=== PATIENT | female | born 1950 | race Caucasian/White ===

== ENCOUNTER 2017-09-01 14:11 | Inpatient (IN) | payer OTHER, MEDICARE ==
[~2017-09-01] VITALS: Ht 160 cm; Wt 48.2 kg
[~2017-09-01 14:11] MED LIST: ASPIRIN EC81 M1 PO; ATORVASTATIN CA80 M1 PO; BENTYL10 M1 PO; BENTYL20 M1 PO; CALCIUM 500 +1 EAC5 PO; CLOBETASOL PROP15 G1 TOP; DICLOFENAC POTA50 M1 PO; DICLOFENAC SODI50 M3 PO; DIVALPROEX SOD500 M2 PO; FELBAMATE PO; FOLIC ACID1 M1 PO; IPRAT-ALBUT 0.5-3 ML INH; LASIX20 M1 PO; LIDODERM1 EACH TOP; METOPROLOL SUCC50 M2 PO; PHENOBARBITAL32.4 M1 PO; PROAIR HFA8.5 GM INH; RESTASIS1 EACH OPH; SYMBICORT 16010.2 GM INH; TRAMADOL HCL50 M1 PO; VITAMIN B-121000 MC3 PO
--- NOTE | 2017-09-01 15:09 | RADIOLOGY REPORT ---
EXAMINATION: XR PORTABLE CHEST CLINICAL INFORMATION: Shortness of breath. Cough. COMPARISON: Chest radiograph 07/08/2017. TECHNIQUE: Portable frontal view of the chest was obtained. FINDINGS: Cardiac leads overlie the chest. There is no focal consolidative disease , pleural effusion, or pneumothorax. The cardiac silhouette and upper mediastinal contours are normal. No acute osseous finding. Old healed fractures of a few right ribs are noted. IMPRESSION: Unremarkable examination. No consolidative disease or effusion.
[2017-09-01 15:44] LABS: ABSOLUTE BASOPHIL COUNT 0 /CUMM (0.0-0.2); ABSOLUTE EOSINOPHIL COUNT 0 /CUMM (0.0-0.7); ABSOLUTE GRANULOCYTE CT 2.2 /CUMM (1.4-6.5); ABSOLUTE MONOCYTE COUNT 0.4 /CUMM (0.10-0.60); BASOPHIL % 0.8 % (0.0-2.0); EOSINOPHIL % 0.4 % (0-5); GRANULOCYTE % 60.1 % (42.2-75.2); HEMATOCRIT 38.4 % (37-47); MEAN CORPUSCULAR HGB 33.1 PG (27.0-31.0); MEAN CORPUSCULAR HGB CONC 34.2 G/DL (33.0-37.0); MEAN CORPUSCULAR VOLUME 97.1 FL (81.0-99.0); MEAN PLATELET VOLUME 8.5 FL (7.4-10.4); PLATELET COUNT 124 /CUMM (130-400); RBC DISTRIBUTION WIDTH 13.7 % (11.5-14.5); RED BLOOD CELL CT 3.96 /CUMM (4.20-5.40); WHITE BLOOD CELL COUNT 3.7 /CUMM (4.8-10.8)
[2017-09-01] MEDS ORDERED: ECASA PO (16:07)
[2017-09-01] MEDS ORDERED: LIPO-FLAVONOID1 EACH PO (16:08)
--- NOTE | 2017-09-01 16:10 | ED DYSPNEA/ASTHMA COMPLAINT ---
History of Present Illness General Chief Complaint: Dyspnea (COPD, CHF, Other) Stated Complaint: SOB Source: patient, EMS Exam Limitations: poor historian Vital Signs & Intake/Output Vital Signs & Intake/Output Vital Signs Date Time Temp Pulse Resp B/P B/P Pulse O2 O2 Flow FiO2 Mean Ox Delivery Rate 09/01 2330 Nasal 2.0L Cannula 09/010 97.9 78 24 142/78 94 Nasal Cannula 09/01 2143 98.2 76 22 116/58 96 Nasal 3.0L Cannula 09/01 1956 Nasal 2.0L Cannula 09/01 1947 96.8 76 28 137/63 96 Nasal 3.0L Cannula 09/01 1710 98.4 76 20 114/53 94 Nasal 5.0L Cannula 09/01 1455 90 09/01 1430 92 Room Air Room Air 09/01 1416 96.3 79 20 153/88 94 Room Air Room Air ED Intake and Output 09/02 0000 09/01 1200 Intake Total 0 Output Total Balance 0 Intake, Oral 0 Patient 105 lb Weight Weight Bed scale Measurement Method Allergies Coded Allergies: cefuroxime (From Ceftin) (RASH 09/01/17) levofloxacin (From Levaquin) (RASH 09/01/17) morphine (UNKNOWN 09/01/17) Reconcile Medications Albuterol Sulfate (Proair Hfa) 8.5 GM HFA.AER.AD 2 PUF INH PRN WHEEZE ( Reported) Atorvastatin Calcium 80 MG TABLET 1 TAB PO DAILY CHOLESTEROL (Reported) Bioflav,Lemon/Vit Bcomp,C (Lipo-Flavonoid Plus Caplet) 200 MG-100 MG TABLET 1 TAB PO QAMPM SUPPLEMENT (Reported) Budesonide/Formoterol Fumarate (Symbicort 160-4.5 Mcg Inhaler) 10.2 GM HFA.AER.AD 2 PUF INH BID COPD Calcium Carbonate/Vitamin D3 (Calcium 500 + D Tablet) 1 EACH TABLET 1 TAB PO BID SUPPLEMENT (Reported) Clobetasol Propionate 15 GM OINT...G. 1 ART TOP DAILY PRN SKIN (Reported) apply to affected area(s) Cyanocobalamin (Vitamin B-12) 1,000 MCG TABLET 1 TAB PO QAM SUPPLEMENT ( Reported) Cyclosporine (Restasis) 1 EACH DROPERETTE 1 GTT OPH Q12H BOTH EYES (Reported) Diclofenac Sodium 50 MG TABLET.DR 1 TAB PO BID WATKINS (Reported) Dicyclomine Hydrochloride (Bentyl) 10 MG CAPSULE 20 MG PO TID PRN CRAMPS ( Reported) Divalproex Sodium 500 MG TABLET.DR 1 TAB PO BID EPILEPSY (Reported) [ECASA] 81 MG TAB 81 MG PO QAM HEART HEALTH (Reported) *ENTERIC CODED ASPIRIN Felbamate 600 MG TABLET 1 TAB PO BID EPILEPSY (Reported) Felbamate 600 MG TABLET 0.5 TAB PO DAILY EPILEPSY (Reported) Folic Acid 1 MG TABLET 1 TAB PO QAM SUPPLEMENT (Reported) Ipratropium/Albuterol Sulfate (Iprat-Albut 0.5-3(2.5) MG/3 Ml) 3 ML AMPUL.NEB 3 ML INH BID PRN SOB/WHEEZE (Reported) Metoprolol Succinate 50 MG TAB.ER.24H 1 TAB PO QAM HEART/BP (Reported) Phenobarbital 32.4 MG TABLET 1 TAB PO QAM EPILEPSY (Reported) Phenobarbital 32.4 MG TABLET 2 TAB PO QHS EPILEPSY (Reported) Triage Note: PT BIBA FROM HOME FOR EVAL OF URI SYMPTOMS. PT'S VISITING NURSE SUGGESTED PT COME TO THE ED FOR EVAL. PT REPORTS PRODUCTIVE COUGH, PT'S O2 SAT 92%-94% RA. PT RECEIVED 1 BREATHING TREATMENT EN ROUTE. PT ALSO COMPLAINS OF RUQ ABD PAIN THAT SHE DESCRIBES UNDER HER RIBS. ALSO HAD DIARRHEA, DENIES BLOOD IN STOOL. DENIES NAUSEA. Triage Nurses Notes Reviewed? yes Onset: Abrupt Duration: day(s):, constant, continues in ED Timing: recent history Severity: moderate, severe HPI: 59-year-old female comes into the emergency room feeling more increasingly weak. Patient reports that she's been feeling sick since this past Wednesday about 5-6 days ago. She's had some general weakness fatigue coughing shortness of breath with some mucus production. Subjective fevers and chills. Some associated diarrhea. Nothing seems to make the symptoms better. She lives by herself. Comes in for further evaluation. (Dominic Levi) Past History Travel History Traveled to [place] past 21 day No Medical History Any Pertinent Medical History? 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 No (Dominic Levi) Review of Systems Review of Systems Constitutional: Reports: see HPI. EENTM: Reports: see HPI. Respiratory: Reports: see HPI. Cardiovascular: Reports: no symptoms. GI: Reports: no symptoms. Genitourinary: Reports: no symptoms. Musculoskeletal: Reports: no symptoms. Skin: Reports: no symptoms. Neurological/Psychological: Reports: no symptoms. Hematologic/Endocrine: Reports: no symptoms. Immunologic/Allergic: Reports: no symptoms. All Other Systems: Reviewed and Negative (Dominic Levi) Physical Exam Physical Exam General Appearance: alert, awake, mild distress Head: atraumatic Eyes: Bilateral: normal appearance. Ears, Nose, Throat: normal ENT inspection, hearing grossly normal Neck: normal inspection Respiratory: decreased breath sounds, rhonchi, respiratory distress (mild) Cardiovascular: regular rate/rhythm Gastrointestinal: soft Extremities: normal inspection Neurologic/Psych: awake, alert, oriented x 3 Skin: intact, normal color Core Measures ACS in differential dx? Yes CVA/TIA Diagnosis No Sepsis Present: No Sepsis Focused Exam Completed? No (Dominic Levi) Progress Differential Diagnosis: asthma, altitude sickness, bronchitis, costochondritis, musculoskeletal pain, pericarditis, pulmonary embolism, pneumonia, pneumothorax, unstable angina, INFLUENZA Plan of Care: Orders Procedure Date/time Status Heart Healthy Diet 09/03 B Active CBC WITHOUT DIFFERENTIAL 09/03 599 Active Regular Diet 09/02 B Active VALPROIC ACID 09/02 599 Active BASIC ELECTROLYTES PLUS BUN&CR 09/02 599 Active TROPONIN LEVEL 09/02 13 Complete TRC EVALUATION (GEN) 09/02 8 Active Pathway - chart 09/02 8 Active House Staff 09/02 8 Active Patient Data 09/02 8 Active Code Status 02/01 0009 Active Lab Add-on Test 09/02 UNK Active VTE Mechanical Prophylaxis 09/02 UNK Active Vital Signs 09/02 UNK Complete MISTAKE 09/02 UNK Active EKG 09/02 UNK Active Regular Diet 09/01 D Complete Vital Signs 09/01 2314 Active Teach/Educate 09/014 Active Pain Treatment and Response 09/01 2313 Active Nutritional Intake, Monitor 09/01 2313 Active Isolation 09/01 2313 Active Intake & Output 09/01 2313 Active Patient Care Conference 09/01 2313 Active Activity/Ambulation 09/01 2313 Active Patient Data 09/01 203 Active ED Holding Orders 09/01 193 Active Admit to inpatient 09/01 1936 Active Vital Signs 09/01 193 Active Code Status 09/01 1936 Complete AEROSOL (GEN) 09/01 1450 Complete RAPID VIRAL INFLUENZA A 09/01 1449 Complete Add-on Test (ER Only) 09/01 1445 Active Telemetry/Back Feeder Plywood Layup Line 09/01 1445 Complete BLOOD CULTURE 09/01 1445 Active URINALYSIS 09/01 1445 Complete LACTIC ACID 09/01 1445 Complete Intake & Output 09/01 1429 Active TROPONIN LEVEL 09/01 1429 Complete COMPREHENSIVE METABOLIC PANEL 09/01 1429 Complete CBC WITHOUT DIFFERENTIAL 09/01 1429 Complete B-TYPE NATRIURETIC PEP (BNP) 09/01 1429 Complete EKG 09/01 1417 Active Current Medications Sig/Maureen Start time Last Medication Dose Stop Time Status Admin Phenobarbital 64.8 MG AT BEDTIME 09/02 2200 AC Atorvastatin Calcium 80 MG 1700 09/02 1700 AC (Lipitor) Felbamate 300 MG 1200 09/02 1200 AC Aspirin 81 MG DAILY 09/02 1000 AC (Aspirin) Azithromycin 500 MG DAILY 09/02 1000 AC (Zithromax) Dextrose/Water 250 ML (D5W) Budesonide/ 2 PUF BID 09/02 1000 AC Formoterol Fumarate (Symbicort) Enoxaparin Sodium 40 MG DAILY 09/02 1000 AC (Lovenox) Methylprednisolone 40 MG Q12 09/02 1000 AC (Solumedrol) Metoprolol Succinate 50 MG QAM 09/02 1000 AC (Toprol Xl) Nicotine 14 MG Q24 09/02 1000 AC (Nicotine Cq) Phenobarbital 32.4 MG QAM 09/02 1000 AC Albuterol Sulfate 2 PUF Q6 PRN 09/02 0200 AC (Ventolin) Divalproex Sodium 500 MG BID 09/02 199 AC 09/02 (Depakote) 0213 Felbamate 600 MG BID 09/02 199 AC 09/02 021 Acetaminophen 650 MG Q6P PRN 09/02 14 AC 09/02 (Tylenol) 0220 Ibuprofen 600 MG Q6P PRN 09/02 14 AC (Motrin) Sodium Chloride 1,000 ML ONCE ONE 09/02 14 AC 09/02 (Normal Saline 0.9%) 09/02 1334 0053 Laboratory Tests 09/02/17 0100: Troponin I < 0.01 09/01/17 1933: Urine Color YEL, Urine Clarity HAZY H, Urine pH 6.0, Ur Specific [place] 1.020, Urine Protein 30 H, Urine Ketones 15 H, Urine Nitrite NEG, Urine Bilirubin NEG , Urine Urobilinogen 0.2, Ur Leukocyte Esterase MOD H, Ur Microscopic SEDIMENT EXAMINED, Urine RBC RARE, Urine WBC 5-10 H, Ur Epithelial Cells RARE, Urine Bacteria FEW H, Urine Mucus RARE, Urine Hemoglobin NEG, Urine Glucose NEG 09/01/17 1745: Lactic Acid Cancelled 09/01/17 1527: Lactic Acid 1.1 09/01/17 1527: Anion Gap 14, Estimated GFR > 60, BUN/Creatinine Ratio 20.0, Glucose 64 L, Calcium 9.0, Total Bilirubin 0.2, AST 60 H, ALT 52, Alkaline Phosphatase 101, Troponin I 0.01, [id number] Pept 506 H, Total Protein 6.4, Albumin 3.6, Globulin 2.8, Albumin/Globulin Ratio 1.3, CBC w Diff MAN DIFF ORDERED, RBC 3.96 L, MCV 97.1, MCH 33.1 H, MCHC 34.2, RDW 13.7, MPV 8.5, Gran % 60.1, Lymphocytes % 27.2, Monocytes % 11.5 H, Eosinophils % 0.4, Basophils % 0.8, Absolute Granulocytes 2.2, Absolute Lymphocytes 1.0 L, Absolute Monocytes 0.4, Absolute Eosinophils 0, Absolute Basophils 0 Microbiology 09/01 1617 NASOPHARYN: Influenza Virus A & B Rapid Smear - COMP 09/01 1540 BLOOD: Blood Culture - RECD 09/01 1527 BLOOD: Blood Culture - RECD Diagnostic Imaging: Viewed by Me: Radiology Read. Discussed w/RAD: Radiology Read. Radiology Impression: PATIENT: ADELE JUAREZ PRESENT AGE: 67 PATIENT ACCOUNT NO: [id number] : 49 LOCATION: [facility] ORDERING PHYSICIAN: Dominic GUADARRAMA SERVICE DATE: 09/01/17-7481 EXAM TYPE : RAD - XRY-PORTABLE CHEST XRAY EXAMINATION: XR PORTABLE CHEST CLINICAL INFORMATION: Shortness of breath. Cough. COMPARISON: Chest radiograph 2016. TECHNIQUE: Portable frontal view of the chest was obtained. FINDINGS: Cardiac leads overlie the chest. There is no focal consolidative disease , pleural effusion, or pneumothorax. The cardiac silhouette and upper mediastinal contours are normal. No acute osseous finding. Old healed fractures of a few right ribs are noted. IMPRESSION: Unremarkable examination. No consolidative disease or effusion. DICTATED BY: Gilbert Finley MD DATE/TIME DICTATED:09/01 BAR PILOT:[place] DATE/TIME TRANSCRIBED:09/01/171504 CONFIDENTIAL, DO NOT COPY WITHOUT APPROPRIATE AUTHORIZATION. <Electronically signed in Other Vendor System> SIGNED BY: Gilbert Finley MD 09/01/171508 Initial ED EKG: normal sinus rhythm, rate (75) (Dominic Levi) Departure Departure Disposition: STILL A PATIENT Condition: Stable Clinical Impression Primary Impression: Hypoxia Secondary Impressions: COPD exacerbation, Flu-like symptoms Referrals: Juan M Dumont MD (PCP/Family) Departure Forms: Customer Survey General Discharge Information Admission Note Spoke With: Familia Fajardo MD Documentation of Exam: Documentation of any treatments & extenuating circumstances including Concerns Regarding Discharge (functional status, medication knowledge or non-compliance, living conditions, etc.) that warrant an admission rather than observation: Patient will require supplemental oxygen. IV steroids. Antibiotics. Supportive management. Pulmonary consult. Patient's oxygen saturation on room air when laying there is 82%. She will require regular breathing treatments. High risk. Lives by herself. Medically not safe for discharge. (Dominic Levi) PA/HORTICULTURAL FARM MANAGER Co-Sign Statement Statement: ED Attending supervision documentation- [X] I saw and evaluated the patient. I have also reviewed all the pertinent lab results and diagnostic results. I agree with the findings and the plan of care as documented in the PA's/HORTICULTURAL FARM MANAGER's documentation. [X] I have reviewed the ED Record and agree with the PA's/HORTICULTURAL FARM MANAGER's documentation. [] Additions or exceptions (if any) to the PAs/HORTICULTURAL FARM MANAGER's note and plan are summarized below: [] (Eula CONRAD,Gabrielle) Critical Care Note Critical Care Note Critical Care Time: non-applicable (Dominic Levi)
--- NOTE | 2017-09-01 20:21 | History & Physical ---
Manuel CONRAD,[facility] 09/01/172020: General Information and HPI MD Statement: I have seen and personally examined ADELE JUAREZ and documented this H&P. The patient is a 67 year old F who presented with a patient stated chief complaint of [flulike symptoms]. Source of Information: patient Exam Limitations: no limitations History of Present Illness: 67-year-old female with a past medical history of COPD, cardiomyopathy, viral encephalitis, seizures, right eye blindness, GI polyps, degenerative joint disease, hypodensities, depression, presenting for a chief complaint of flulike symptoms. The patient states that her symptoms started last Wednesday. That she had the flu. States she had fevers, shivering, and felt delirious. The patient states that the symptoms then slightly improved however on Wednesday afternoon she started having a headache, stated her ears felt filled up, and chills. The patient states that the fullness then slipped and to her chest. She states that she does have left chest pain which is stabbing quality, she thinks this is a muscle pain. The patient had visiting nurse visit Wednesday but was too weak to get the door. The patient also complains of diarrhea for 2 days without any blood. She also reports decreased appetite. She states she has shortness of breath currently and does not use any oxygen at home. She states she had productive cough during the weekend which was dark in color. The patient did not actually check the color of the sputum because she threw out the sample. She states that her flulike symptoms have gotten worse since Wednesday. Allergies/Medications Allergies: Coded Allergies: cefuroxime (From Ceftin) (RASH 09/01/17) levofloxacin (From Levaquin) (RASH 09/01/17) morphine (UNKNOWN 09/01/17) Home Med list Albuterol Sulfate (Proair Hfa) 8.5 GM HFA.AER.AD 2 PUF INH PRN WHEEZE ( Reported) Atorvastatin Calcium 80 MG TABLET 1 TAB PO DAILY CHOLESTEROL (Reported) Bioflav,Lemon/Vit Bcomp,C (Lipo-Flavonoid Plus Caplet) 200 MG-100 MG TABLET 1 TAB PO QAMPM SUPPLEMENT (Reported) Budesonide/Formoterol Fumarate (Symbicort 160-4.5 Mcg Inhaler) 10.2 GM HFA.AER.AD 2 PUF INH BID COPD Calcium Carbonate/Vitamin D3 (Calcium 500 + D Tablet) 1 EACH TABLET 1 TAB PO BID SUPPLEMENT (Reported) Clobetasol Propionate 15 GM OINT...G. 1 ART TOP DAILY PRN SKIN (Reported) apply to affected area(s) Cyanocobalamin (Vitamin B-12) 1,000 MCG TABLET 1 TAB PO QAM SUPPLEMENT ( Reported) Cyclosporine (Restasis) 1 EACH DROPERETTE 1 GTT OPH Q12H BOTH EYES (Reported) Diclofenac Sodium 50 MG TABLET.DR 1 TAB PO BID WATKINS (Reported) Dicyclomine Hydrochloride (Bentyl) 10 MG CAPSULE 20 MG PO TID PRN CRAMPS ( Reported) Divalproex Sodium 500 MG TABLET.DR 1 TAB PO BID EPILEPSY (Reported) [ECASA] 81 MG TAB 81 MG PO QAM HEART HEALTH (Reported) *ENTERIC CODED ASPIRIN Felbamate 600 MG TABLET 1 TAB PO BID EPILEPSY (Reported) Felbamate 600 MG TABLET 0.5 TAB PO DAILY EPILEPSY (Reported) Folic Acid 1 MG TABLET 1 TAB PO QAM SUPPLEMENT (Reported) Ipratropium/Albuterol Sulfate (Iprat-Albut 0.5-3(2.5) MG/3 Ml) 3 ML AMPUL.NEB 3 ML INH BID PRN SOB/WHEEZE (Reported) Metoprolol Succinate 50 MG TAB.ER.24H 1 TAB PO QAM HEART/BP (Reported) Phenobarbital 32.4 MG TABLET 1 TAB PO QAM EPILEPSY (Reported) Phenobarbital 32.4 MG TABLET 2 TAB PO QHS EPILEPSY (Reported) Past History Travel History Traveled to [place] past 21 day No Medical History Neurological: seizure EENT: RT EYE BLINDNESS Cardiovascular: cardiomyopathy, VITAL ENCEPHALITIS Respiratory: COPD Gastrointestinal: POLYPS Hepatic: NONE Renal: NONE Musculoskeletal: degen joint disease Psychiatric: bipolar disease, depression Endocrine: NONE Blood Disorders: NONE Cancer(s): NONE DATA SUPPORT SPECIALIST/Reproductive: NONE History of MRSA: No History of VRE: No History of CDIFF: No Surgical History Surgical History: non-contributory Past Family/Social History Family History Relations & Conditions if any Relation not specified for: *No pertinent family history Psychosocial History Services at Home: None ETOH Use: denies use Illicit Drug Use: denies illicit drug use Review of Systems Review of Systems Constitutional: Reports: see HPI, chills, fever, malaise, weakness. Cardiovascular: Reports: see HPI, chest pain. Denies: palpitations, peripheral edema. Respiratory: Reports: cough, short of breath, sputum production. GI: Reports: diarrhea. Genitourinary: Reports: no symptoms. Musculoskeletal: Reports: see HPI. Exam & Diagnostic Data Last 24 Hrs of Vital Signs/I&O Vital Signs Date Time Temp Pulse Resp B/P B/P Pulse O2 O2 Flow FiO2 Mean Ox Delivery Rate 09/01 2330 Nasal 2.0L Cannula 09/01 2320 97.9 78 24 142/78 94 Nasal Cannula 09/01 2143 98.2 76 22 116/58 96 Nasal 3.0L Cannula 09/01 1956 Nasal 2.0L Cannula 09/01 194 96.8 76 28 137/63 96 Nasal 3.0L Cannula 09/01 1710 98.4 76 20 114/53 94 Nasal 5.0L Cannula 09/01 1455 90 09/01 1430 92 Room Air Room Air 09/01 1416 96.3 79 20 153/88 94 Room Air Room Air Intake & Output 09/02 0800 09/02 0000 09/01 1600 Intake Total 0 Output Total Balance 0 Intake, Oral 0 Patient 105 lb 108 lb Weight Weight Bed scale Reported by Patient Measurement Method Physical Exam General Appearance Alert, Oriented X3, Cooperative Cardiovascular Regular Rate, Normal S1, Normal S2 Lungs decreased lung sounds, diffuse wheezing b/l Abdomen decreased BS Extremities no edema Vascular 2+ radial and pedal pulses Assessment/Plan Assessment: 67 year old F with pmhx of a COPD, 24-bsvu-dils current daily smoker, leichen sclerosis, cardiomyopathy, encephalitis, GI polyps, bipolar disease, depression, degenerative joint disease, right eye blindness, seizure presenting for increasing weakness P: #Acute hypoxic respiratory failure most likely due to COPD exascerbation Tmax 98.4, HR 76, R 20, BP range 114-153/53-88, 94% on 5 L WBC 3.7 Sodium 137, K4.0, chloride 94, CO2 29, anion gap 14, the urine 14, creatinine 0.7 Lactic acid 1.1 AST 60, ALT 52, ALP 101 trop .01, <.01 ProBNP 506 Rapid flu negative cxr: negative -Continue IV Solu-Medrol, TRC, nebs, azithromycin -Continue normal saline 1 L -Call Dr. Martinez as a courtesy #hld -cont Atorvastatin #seiszure meds -Continue felbamate, phenobarbital, divalproex Na #hx of cardiomyopathy -cont aspirin, #full code #dvt prophyalxis - Lovenox As Ranked By This Provider Problem List: 1. COPD exacerbation 2. Flu-like symptoms Core Measures/Misc (04/18) Acute Coronary Syndrome ACS Diagnosis: No Congestive Heart Failure Congestive Heart Failure Diagnosis No Cerebrovascular Accident CVA/TIA Diagnosis: No VTE (View Protocol) VTE Risk Factors Acute Medical Illness No Mechanical VTE Prophylaxis d/t Other No VTE Pharm Prophylaxis d/t NA PharmProphylax ordered Sepsis (View protocol) Sepsis Present: No Familia Fajardo 09/02/17 0447: Attending MD Review Statement Attending Statement Attending MD Statement: examined this patient, discuss w/resident/PA/DIE REAMER, agreed w/resident/PA/DIE REAMER, reviewed EMR data (avail), reviewed images, amended to note Attending Assessment/Plan: CC: URI symptoms PMH: cardiomyopathy, depression, bipolar disorder, 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 Since last 5 days she has not feeling very well, it started with upper respiratory symptoms "head cold" had nasal congestion and runny nose, notice to chills and felt febrile but did not take any temperature it continued through the next day, a following day she had a visiting nurse checking on her who suggested to continue supportive care later that evening she again noticed worsening fever, cold and headache. She was sick to the level that she was feeling delirious and could not do anything. Next day patient developed diarrhea, she had watery stools so many times that she lost count, it resolved with antidiarrheal medication. But cough and sputum production persisted, she was getting more short of breath. She called her visiting nurse with the symptoms also suggested her to go to ER. Vitals: Afebrile, pulse in 70s, RR 20, blood pressure 153/88, saturating 94% on 5 L On exam: A O 3, cooperative, no acute distress, neck supple, JVD normal, no lymphadenopathy, mucosa moist, no focal neurological deficit, no dependent edema , no obvious skin rashes or inflammation CVS: S1-S2, RRR. RS: Markedly decreased air entry and diffuse intermittent wheezing. Abdomen: Soft, NT, ND, bowel sounds present. Labs: WBC 3.7, hemoglobin 13.1, hematocrit 38.4, platelet 124, neutrophils 60%, sodium 137, potassium 4.0, chloride 94, bicarbonate 29, BUN 14, creatinine 0.7, glucose 64, calcium 9.0, lactate 1.1, LFT unremarkable except AST 60, troponin 0.01, BNP 506 Rapid influenza negative CXR:Unremarkable examination. No consolidative disease or effusion. Assessment and plan 67-year-old female with multiple comorbidities presented with a worsening of cough and sputum production it was preceded by URI symptoms especially around the nose, fever and chills. Patient has some chest soreness but denies any pleuritic chest pain, chest tightness, leg swelling, nausea, vomiting, choking, sick contacts, recent travels. She has decreased air entry bilaterally with diffuse intermittent wheezing otherwise examination unremarkable. WBC 3.7, no evidence of pneumonia on x-ray, proBNP normal. Patient appears to have COPD exacerbation precipitated by URI. High likelihood of having influenza but rapid flu test is negative. If patient spikes significant fever we will empirically start Tamiflu. Even though patient does not appear to be in significant respiratory distress she was desaturating even at rest in ER, oxygenation improved with nasal cannula. 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, COPD, S/P right CEA, history of GI bleed - Admit to general medicine - Try to wean off oxygen - IV methylprednisolone 40 mg every 12 hours - IV azithromycin - If fever spike considers Tamiflu - TRC nebulization with albuterol and ipratropium scheduled and when necessary - Mucinex scheduled twice a day - Continue rest of the home medications - Adequate pain control - Gentle hydration for 1 L normal saline - Informed Travis Martinez MD patient known to him - 2 sets of troponin and EKGs - DVT prophylaxis Stan CONRAD,[facility] 09/02/17 0604: Resident Review Statement Resident Statement: examined this patient, discussed with nutrition internship, agreed with nutrition internship, discussed with family Other Findings: Ms. Juarez is 67 year old female with past medical history significant for epilepsy status post viral encephalitis and temporarily ventricular drainage, depression, bipolar disorder, COPD, carotid stenosis status post right endarterectomy 2012, lower GI bleed who presented with chief complaint of flulike symptoms and shortness of breath, productive cough, stabbing chest pain under left intercostal muscles. Problem list #Upper respiratory infection #COPD exacerbation #Acute hypoxic respiratory failure #Epilepsy on 3 medication #Elevated AST Plan Admit to general medical floor Vitals every shift TRC and nebs Continue home inhalers Solu-Medrol 40 twice a day Azithromycin IV Follow up sputum, blood culture Mucinex for cough Troponin and EKG Continue home medication Courtesy call Travis Martinez MD If patient spikes fever start Tamiflu DVT prophylaxis Lovenox and Alps Code full Diet heart healthy
[2017-09-01 23:20] VITALS: BP 142/78
--- NOTE | 2017-09-02 04:49 | Admission Certification ---
Admission Certification Certification Statement - As attending physician, I certify that at the time of - admission, based on clinical presentation, severity of - symptoms, need for further diagnostic testing and - therapeutic interventions, and risk of adverse outcomes - without in-hospital treatment, in my clinical assessment, - this patient requires an acute hospital stay for a minimum - of two nights or longer. I have also considered psychsocial - factors such as support system, advanced age, financial - issues, cognitive issues, and failed out-patient treatments, - past re-admission history, safety of patient, and lack of - compliance as applicable. Specific rationale supporting this admission is: COPD exacerbation
[2017-09-02 06:47] VITALS: BP 136/70
--- NOTE | 2017-09-02 08:03 | PN- Housestaff ---
[facility] Subjective Follow-up For: Acute hypoxic respiratory failure due to COPD exacerbation. Subjective: No overnight events. Patient remained afebrile overnight. Is seen and examined this morning. Patient denied any chest pain, nausea, vomiting, chills, fever, abdominal pain dysuria. Patient reported having shortness of breath especially on exertion with cough, no sputum. Patient also reporting that her appetite has decreased. Review of Systems Constitutional: Reports: no symptoms. EENTM: Reports: no symptoms. Cardiovascular: Reports: no symptoms. Respiratory: Reports: cough, short of breath. Gastrointestinal: Reports: see HPI. Genitourinary: Reports: no symptoms. Musculoskeletal: Reports: no symptoms. Neurological/Psychological: Reports: no symptoms. Objective Last 24 Hrs of Vital Signs/I&O Vital Signs Date Time Temp Pulse Resp B/P B/P Pulse O2 O2 Flow FiO2 Mean Ox Delivery Rate 09/02 1009 95 Nasal 2.0L Cannula 09/02 0955 Nasal 2.0L Cannula 09/02 0931 84 138/70 09/02 0800 Nasal 2.0L Cannula 09/02 0647 97.9 86 24 136/70 93 Nasal 3.0L Cannula 09/02 0547 92 Nasal 2.0L Cannula 09/01 2330 Nasal 2.0L Cannula 09/01 2320 97.9 78 24 142/78 94 Nasal Cannula 09/01 2143 98.2 76 22 116/58 96 Nasal 3.0L Cannula 09/017 Nasal 2.0L Cannula 09/01 194 96.8 76 28 137/63 96 Nasal 3.0L Cannula 09/01 1710 98.4 76 20 114/53 94 Nasal 5.0L Cannula 09/01 1455 90 09/01 1430 92 Room Air Room Air 09/01 1416 96.3 79 20 153/88 94 Room Air Room Air Intake & Output 09/02 1600 09/02 0800 09/02 0000 Intake Total 1100 Output Total 400 Balance -400 1100 Intake, IV 600 Intake, Oral 500 Output, Urine 400 Patient 105 lb Weight Weight Bed scale Measurement Method Physical Exam General Appearance: Alert, Oriented X3, Cooperative Skin Temp/Moisture Exam: Warm/Dry Sepsis Skin Exam (color): Normal for Ethnicity HEENT: Atraumatic, PERRLA, EOMI Neck: Supple Cardiovascular: Normal S1, Normal S2 Lungs: Decreased breath sounds b/l with ronchi Abdomen: Soft, No Tenderness Neurological: Normal Speech, Strength at 5/5 X4 Ext, Normal Tone Extremities: No Edema Last 24 Hrs of Lab/Perfecto Results Last 24 Hrs of Labs/Mics: Laboratory Tests 09/02/17 0814: Ref Lab Test Result Pending 09/02/17 0520: Troponin I 0.02 09/02/17 0520: Anion Gap 12, Estimated GFR > 60, BUN/Creatinine Ratio 24.0, Valproic Acid 47.7 L 09/02/17 0100: Troponin I < 0.01 09/01/17 1933: Urine Color YEL, Urine Clarity HAZY H, Urine pH 6.0, Ur Specific [place] 1.020, Urine Protein 30 H, Urine Ketones 15 H, Urine Nitrite NEG, Urine Bilirubin NEG , Urine Urobilinogen 0.2, Ur Leukocyte Esterase MOD H, Ur Microscopic SEDIMENT EXAMINED, Urine RBC RARE, Urine WBC 5-10 H, Ur Epithelial Cells RARE, Urine Bacteria FEW H, Urine Mucus RARE, Urine Hemoglobin NEG, Urine Glucose NEG 09/01/17 1745: Lactic Acid Cancelled 09/01/17 1527: Lactic Acid 1.1 09/01/17 1527: Anion Gap 14, Estimated GFR > 60, BUN/Creatinine Ratio 20.0, Glucose 64 L, Calcium 9.0, Total Bilirubin 0.2, AST 60 H, ALT 52, Alkaline Phosphatase 101, Troponin I 0.01, Llv-W-Baprnclaqvn Pept 506 H, Total Protein 6.4, Albumin 3.6, Globulin 2.8, Albumin/Globulin Ratio 1.3, CBC w Diff MAN DIFF ORDERED, RBC 3.96 L, MCV 97.1, MCH 33.1 H, MCHC 34.2, RDW 13.7, MPV 8.5, Gran % 60.1, Lymphocytes % 27.2, Monocytes % 11.5 H, Eosinophils % 0.4, Basophils % 0.8, Absolute Granulocytes 2.2, Absolute Lymphocytes 1.0 L, Absolute Monocytes 0.4, Absolute Eosinophils 0, Absolute Basophils 0 Microbiology 09/02 608 LOWER RESP: Respiratory Culture - COLB 09/02 608 LOWER RESP: Gram Stain - COLB 09/01 1617 NASOPHARYN: Influenza Virus A & B Rapid Smear - COMP 09/01 1540 BLOOD: Blood Culture - RES 09/01 1527 BLOOD: Blood Culture - RES Assessment/Plan Assessment: 67 YO F with a PMH of COPD, cardiomyopathy, viral encephalitis, seizures, right eye blindness, GI polyps, degenerative joint disease, hypodensities, depression, presenting for a chief complaint of flulike symptoms. We'll admit the patient on general medicine floor to treat for acute hypoxic respiratory failure due to COPD exacerbation. Acute hypoxic respiratory failure due to COPD exacerbation: -Initially patient was on 5 L of oxygen and maintaining saturation, now he is on 3 L of oxygen and we will try to wean it off. -TRC nebulization as needed -IV azithromycin for 5 days. -IV Solu-Medrol every 12 hourly. -We will give him Mucinex. History of cardiomyopathy: -We will continue metoprolol and aspirin. History of hyperlipidemia: -We will continue Lipitor History of seizures: -We'll continue her home medications. DVT prophylaxis: Mechanical and Lovenox CODE STATUS: Full code Problem List: 1. COPD exacerbation 2. 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 Hypoxic in ER requiring 5L NC to maintain >92% saturation, with mild wheezing on exam. CXR and rapid flu negative. 1. COPD Exacerbation 2. Acute hypoxemic respiratory failure 3. Acute bronchitis Plan - Continue on general medicine - Continue Solumedrol, taper tomorrow if improved - Continue Azithromycin - Nebulizer treatments - Titrate down oxygen as tolerated - Continue home medications - Sputum culture - DVT PPx
[2017-09-02 14:07] VITALS: BP 122/74
[2017-09-02 14:41] VITALS: BP 110/70
--- NOTE | 2017-09-02 18:55 | Cons- Pulmonary ---
General Information and HPI Consulting Request Date of Consult: 09/02/17 Requested By: med team History of Present Illness: 67-year-old female with a past medical history of COPD, cardiomyopathy, viral encephalitis, seizures, right eye blindness, GI polyps, degenerative joint disease, hypodensities, depression, presenting for a chief complaint of flulike symptoms. The patient states that her symptoms started last Wednesday. That she had the flu. States she had fevers, shivering, and felt delirious. The patient states that the symptoms then slightly improved however on Wednesday she started having a headache, stated her ears felt filled up, and chills. The patient states that the fullness then slipped and to her chest. She states that she does have left chest pain which is stabbing quality, she thinks this is a muscle pain. The patient had visiting nurse visit Wednesday but was too weak to get the door. The patient also complains of diarrhea for 2 days without any blood. She also reports decreased appetite. She states she has shortness of breath currently and does not use any oxygen at home. She states she had productive cough during the weekend which was dark in color. The patient did not actually check the color of the sputum because she threw out the sample. She states that her flulike symptoms have gotten worse since Wednesday. Allergies/Medications Allergies: Coded Allergies: cefuroxime (From Ceftin) (RASH 09/01/17) levofloxacin (From Levaquin) (RASH 09/01/17) morphine (UNKNOWN 09/01/17) Home Med List: Albuterol Sulfate (Proair Hfa) 8.5 GM HFA.AER.AD 2 PUF INH PRN WHEEZE ( Reported) Atorvastatin Calcium 80 MG TABLET 1 TAB PO DAILY CHOLESTEROL (Reported) Bioflav,Lemon/Vit Bcomp,C (Lipo-Flavonoid Plus Caplet) 200 MG-100 MG TABLET 1 TAB PO QAMPM SUPPLEMENT (Reported) Budesonide/Formoterol Fumarate (Symbicort 160-4.5 Mcg Inhaler) 10.2 GM HFA.AER.AD 2 PUF INH BID COPD Calcium Carbonate/Vitamin D3 (Calcium 500 + D Tablet) 1 EACH TABLET 1 TAB PO BID SUPPLEMENT (Reported) Clobetasol Propionate 15 GM OINT...G. 1 ART TOP DAILY PRN SKIN (Reported) apply to affected area(s) Cyanocobalamin (Vitamin B-12) 1,000 MCG TABLET 1 TAB PO QAM SUPPLEMENT ( Reported) Cyclosporine (Restasis) 1 EACH DROPERETTE 1 GTT OPH Q12H BOTH EYES (Reported) Diclofenac Sodium 50 MG TABLET.DR 1 TAB PO BID WATKINS (Reported) Dicyclomine Hydrochloride (Bentyl) 10 MG CAPSULE 20 MG PO TID PRN CRAMPS ( Reported) Divalproex Sodium 500 MG TABLET.DR 1 TAB PO BID EPILEPSY (Reported) [ECASA] 81 MG TAB 81 MG PO QAM HEART HEALTH (Reported) *ENTERIC CODED ASPIRIN Felbamate 600 MG TABLET 1 TAB PO BID EPILEPSY (Reported) Felbamate 600 MG TABLET 0.5 TAB PO DAILY EPILEPSY (Reported) Folic Acid 1 MG TABLET 1 TAB PO QAM SUPPLEMENT (Reported) Ipratropium/Albuterol Sulfate (Iprat-Albut 0.5-3(2.5) MG/3 Ml) 3 ML AMPUL.NEB 3 ML INH BID PRN SOB/WHEEZE (Reported) Metoprolol Succinate 50 MG TAB.ER.24H 1 TAB PO QAM HEART/BP (Reported) Phenobarbital 32.4 MG TABLET 1 TAB PO QAM EPILEPSY (Reported) Phenobarbital 32.4 MG TABLET 2 TAB PO QHS EPILEPSY (Reported) Review of Systems Review of Systems Constitutional: Reports: see HPI. 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 Home Services at Home: Nursing Smoking Status: Current Everyday Smoker ETOH Use: denies use Illicit Drug Use: denies illicit drug use Exam & Diagnostic Data Last 24 Hrs of Vital Signs/I&O Vital Signs Date Time Temp Pulse Resp B/P B/P Pulse O2 O2 Flow FiO2 Mean Ox Delivery Rate 09/02 1441 97.6 60 18 110/70 97 09/02 1407 97.2 70 18 122/74 100 Nasal 2.0L Cannula 09/02 1009 95 Nasal 2.0L Cannula 09/02 0955 Nasal 2.0L Cannula 09/02 0931 84 138/70 09/02 0800 Nasal 2.0L Cannula 09/02 0647 97.9 86 24 136/70 93 Nasal 3.0L Cannula 09/02 0547 92 Nasal 2.0L Cannula 09/01 2330 Nasal 2.0L Cannula 09/01 2320 97.9 78 24 142/78 94 Nasal Cannula 09/01 2143 98.2 76 22 116/58 96 Nasal 3.0L Cannula 09/01 1956 Nasal 2.0L Cannula 09/01 1947 96.8 76 28 137/63 96 Nasal 3.0L Cannula Intake & Output 09/02 1600 09/02 0800 09/02 0000 Intake Total 1160 1100 Output Total 400 Balance 760 1100 Intake, IV 600 600 Intake, Oral 560 500 Output, Urine 400 Patient 105 lb Weight Weight Bed scale Measurement Method Last 48 Hrs of Labs/Perfecto: Laboratory Tests 09/02/17 0814: Ref Lab Test Result Pending 09/02/17 0520: Troponin I 0.02 09/02/17 0520: Anion Gap 12, Estimated GFR > 60, BUN/Creatinine Ratio 24.0, Valproic Acid 47.7 L 09/02/17 0100: Troponin I < 0.01 09/01/17 1933: Urine Color YEL, Urine Clarity HAZY H, Urine pH 6.0, Ur Specific [place] 1.020, Urine Protein 30 H, Urine Ketones 15 H, Urine Nitrite NEG, Urine Bilirubin NEG , Urine Urobilinogen 0.2, Ur Leukocyte Esterase MOD H, Ur Microscopic SEDIMENT EXAMINED, Urine RBC RARE, Urine WBC 5-10 H, Ur Epithelial Cells RARE, Urine Bacteria FEW H, Urine Mucus RARE, Urine Hemoglobin NEG, Urine Glucose NEG 09/01/17 1745: Lactic Acid Cancelled 09/01/17 1527: Lactic Acid 1.1 09/01/17 1527: Anion Gap 14, Estimated GFR > 60, BUN/Creatinine Ratio 20.0, Glucose 64 L, Calcium 9.0, Total Bilirubin 0.2, AST 60 H, ALT 52, Alkaline Phosphatase 101, Troponin I 0.01, Xqu-S-Nfozfjsgail Pept 506 H, Total Protein 6.4, Albumin 3.6, Globulin 2.8, Albumin/Globulin Ratio 1.3, CBC w Diff MAN DIFF ORDERED, RBC 3.96 L, MCV 97.1, MCH 33.1 H, MCHC 34.2, RDW 13.7, MPV 8.5, Gran % 60.1, Lymphocytes % 27.2, Monocytes % 11.5 H, Eosinophils % 0.4, Basophils % 0.8, Absolute Granulocytes 2.2, Absolute Lymphocytes 1.0 L, Absolute Monocytes 0.4, Absolute Eosinophils 0, Absolute Basophils 0 Microbiology 09/01 1617 NASOPHARYN: Influenza Virus A & B Rapid Smear - COMP Assessment/Plan Impression/Plan: SIGNIFICANT DATA Chest x-ray done was unremarkable no pneumonia Previous head CT was suggestive of chronic changes otherwise unremarkable Electrolytes as noted valproic acid level was low all the cultures have been negative so far BUN/creatinine is stable but glucose was low upon admission previous random cortisol level was normal proBNP was 506 white count was 3.7 platelets 124 with no significant left shift. Previous ABG did not reveal hypercarbia cultures so far unremarkable swab negative IMPRESSION This is a lady with bipolar disorder, depression, severe COPD with ongoing smoking, previous seizure disorder, carotid stenosis with previous surgery, remote history of viral encephalitis with CAT AND DOG BATHER shunt, previous colon polyps, diverticulosis, previous rectal bleeding and with Ongoing cough wheezing shortness of breath suggestive of COPD exacerbation. She also does have interstitial lung disease which is complicating the issue Recent diarrhea rule out C. difficile, if she has persistent diarrhea History of epilepsy, cardiomyopathy, peripheral vascular disease and epilepsy has been stable Ongoing smoking RECOMMENDATION Continue [id number]-kwthu nebulizer therapy Can switch to by mouth azithromycin Change steroids to 60 mg daily Continue nicotine patch Sputum culture Discontinue ibuprofen Discontinue IV fluids Stool for C. difficile and culture and full workup if she does have persistent diarrhea Consult Acknowledgment - Thank you for your consult request.
[2017-09-02 23:00] VITALS: BP 124/62
[2017-09-03 06:00] VITALS: BP 118/66
--- NOTE | 2017-09-03 08:45 | PN- Housestaff ---
[facility]: Subjective Follow-up For: Acute hypoxic respiratory failure due to COPD exacerbation. Subjective: No overnight events. Patient remained afebrile overnight. Seen and examined this morning. She is using 3 L of oxygen maintaining saturations 93%. Patient denied any chest pain, nausea, vomiting, chills, fever, abdominal pain dysuria. Patient reported having decreased appetite but has improved compared to yesterday. Patient having intermittent cough and exertional short of breath. We will check her ambulation sats today. Review of Systems Constitutional: Reports: no symptoms. EENTM: Reports: no symptoms. Cardiovascular: Reports: no symptoms. Respiratory: Reports: cough, short of breath. Gastrointestinal: Reports: see HPI. Genitourinary: Reports: no symptoms. Musculoskeletal: Reports: no symptoms. Neurological/Psychological: Reports: no symptoms. Objective Last 24 Hrs of Vital Signs/I&O Vital Signs Date Time Temp Pulse Resp B/P B/P Pulse O2 O2 Flow FiO2 Mean Ox Delivery Rate 09/03 1045 98.2 69 18 118/66 09/03 0822 92 Nasal 2.0L Cannula 09/03 0600 98.2 69 18 118/66 93 Nasal Cannula 09/03 0000 97 Nasal 2.0L Cannula 09/02 2300 97.6 70 18 124/62 95 Nasal Cannula 09/02 2004 94 Nasal 2.0L Cannula 09/02 1441 97.6 60 18 110/70 97 02/ 1407 97.2 70 18 122/74 100 Nasal 2.0L Cannula Intake & Output 09/03 1600 09/03 0800 09/03 0000 Intake Total 400 500 Output Total Balance 400 500 Intake, Oral 400 500 Physical Exam General Appearance: Alert, Oriented X3, Cooperative Skin Temp/Moisture Exam: Warm/Dry Sepsis Skin Exam (color): Normal for Ethnicity HEENT: Atraumatic, PERRLA, EOMI Neck: Supple Cardiovascular: Normal S1, Normal S2 Lungs: Decreased breath sounds on right side compare to left. Abdomen: Soft, No Tenderness Neurological: Normal Speech, Strength at 5/5 X4 Ext, Normal Tone, Sensation Intact Extremities: No Edema Assessment/Plan Assessment: 67 YO F with a PMH of COPD, cardiomyopathy, viral encephalitis, seizures, right eye blindness, GI polyps, degenerative joint disease, hypodensities, depression, presenting for a chief complaint of flulike symptoms. We'll admit the patient on general medicine floor to treat for acute hypoxic respiratory failure due to COPD exacerbation. Acute hypoxic respiratory failure due to COPD exacerbation: -Initially patient was on 5 L of oxygen and maintaining saturation, now he is on 3 L of oxygen and we will try to wean it off. -TRC nebulization as needed -Po azithromycin for 5 days. Day 2 -IV Solu-Medrol every 60mg daily. -We will give him Mucinex. History of cardiomyopathy: -We will continue metoprolol and aspirin. History of hyperlipidemia: -We will continue Lipitor History of seizures: -We'll continue her home medications. DVT prophylaxis: Mechanical and Lovenox CODE STATUS: Full code Problem List: 1. COPD exacerbation Pain Ratin Pain Location: none Pain Goal: Remain pain free Pain Plan: pain pathway Tomorrow's Labs & Rationales: cbc/bep Daija Garrison MD 09/03/17 1235: Attending MD Review Statement Attending Statement Attending MD Statement: examined this patient, discuss w/resident/PA/[employer], agreed w/resident/PA/[employer], reviewed EMR data (avail) Attending Assessment/Plan: 67F PMH cardiomyopathy, depression, bipolar disorder, history of viral encephalitis with temporary ventricular shunt and residual seizure disorder, COPD, S/P right CEA, history of GI bleed, current smoker admitted with initial URI symptoms followed by diarrhea, progressing to fever, chills, fatigue, productive cough with yellow sputum. Hypoxic in ER requiring 5L NC to maintain >92% saturation, with mild wheezing on exam. CXR and rapid flu negative. Feels a bit better today. Oxygen down to 2L NC. 1. COPD Exacerbation 2. Acute hypoxemic respiratory failure 3. Acute bronchitis Plan - Continue on general medicine - Continue Solumedrol 60mg daily, can switch to Prednisone tomorrow - Continue Azithromycin to complete 5 day course - Nebulizer treatments - Titrate down oxygen as tolerated - Continue home medications - Sputum culture - DVT PPx - Likely weekend discharge pending weaning off of oxygen.
[2017-09-03 09:08] LABS: ABSOLUTE BASOPHIL COUNT 0 /CUMM (0.0-0.2); ABSOLUTE EOSINOPHIL COUNT 0 /CUMM (0.0-0.7); ABSOLUTE GRANULOCYTE CT 1.4 /CUMM (1.4-6.5); ABSOLUTE LYMPH COUNT 1.3 /CUMM (1.2-3.4); ABSOLUTE MONOCYTE COUNT 0.2 /CUMM (0.10-0.60); BASOPHIL % 0.4 % (0.0-2.0); EOSINOPHIL % 0.4 % (0-5); GRANULOCYTE % 46.3 % (42.2-75.2); HEMATOCRIT 38.7 % (37-47); MEAN CORPUSCULAR HGB CONC 32.6 G/DL (33.0-37.0); MEAN PLATELET VOLUME 8.8 FL (7.4-10.4); PLATELET COUNT 137 /CUMM (130-400); RBC DISTRIBUTION WIDTH 13.4 % (11.5-14.5); RED BLOOD CELL CT 3.95 /CUMM (4.20-5.40); WHITE BLOOD CELL COUNT 2.9 /CUMM (4.8-10.8)
--- NOTE | 2017-09-03 10:14 | PN- Pulmonary ---
Subjective HPI/Critical Care Issues: Doing about the same and wheezing is better Objective Current Medications: Current Medications Sig/Maureen Start time Last Medication Dose Route Stop Time Status Admin Acetaminophen 650 MG Q6P PRN 09/02 0015 AC 09/02 PO 0927 Albuterol Sulfate 3 ML TID 09/02 1000 AC 09/03 INH 0822 Albuterol Sulfate 2 PUF Q6 PRN 09/02 0200 AC INH Aspirin 81 MG DAILY 09/02 1000 AC 09/02 PO 0928 Atorvastatin Calcium 80 MG 1700 02 1700 AC 09/02 PO 1640 Azithromycin 250 MG DAILY 09/03 1000 AC PO Azithromycin 500 MG DAILY 09/02 1000 DC 09/02 Dextrose/Water 250 ML IV 0948 Budesonide/ 2 PUF BID 09/02 1000 AC 09/02 Formoterol Fumarate INH 2140 Divalproex Sodium 500 MG BID 09/02 0200 AC 09/02 PO 2140 Enoxaparin Sodium 40 MG DAILY 09/02 1000 AC 09/02 SC 0925 Felbamate 300 MG 1200 09/02 1200 AC 09/02 PO 1301 Felbamate 600 MG BID 09/02 0200 AC 09/02 PO 2140 Guaifenesin 600 MG Q12 09/02 1000 AC 09/02 PO 2140 Ibuprofen 600 MG .STK-MED ONE 09/03 0036 DC PO 09/03 0037 Ibuprofen 600 MG Q6P PRN 09/02 0015 DC 09/03 PO 0037 Ipratropium [place] 2.5 ML TID 09/02 1000 AC 09/03 INH 0822 Methylprednisolone 60 MG DAILY 09/03 1000 AC IV Methylprednisolone 40 MG Q12 09/02 1000 DC 09/02 IV 2140 Metoprolol Succinate 50 MG QAM 09/02 1000 AC 09/02 PO 0931 Nicotine 14 MG Q24 09/02 1000 AC 09/02 TOP 0926 Phenobarbital 64.8 MG AT BEDTIME 09/02 2200 AC 09/02 PO 2249 Phenobarbital 32.4 MG QAM 09/02 1000 AC 09/02 PO 0931 Prednisone 60 MG DAILY 09/03 1000 CAN PO Sodium Chloride 1,000 ML ONCE ONE 09/02 0015 DC 09/02 IV 09/02 1334 0053 Vital Signs & I&O Last 24 Hrs of Vitals and I&O: Vital Signs Date Time Temp Pulse Resp B/P B/P Pulse O2 O2 Flow FiO2 Mean Ox Delivery Rate 09/03 821 92 Nasal 2.0L Cannula 09/03 06 98.2 69 18 118/66 93 Nasal Cannula 09/03 0000 97 Nasal 2.0L Cannula 09/02 2300 97.6 70 18 124/62 95 Nasal Cannula 09/02 2004 94 Nasal 2.0L Cannula 09/02 1441 97.6 60 18 110/70 97 09/02 1407 97.2 70 18 122/74 100 Nasal 2.0L Cannula Intake & Output 09/03 1600 09/03 0809/03 0000 Intake Total 400 500 Output Total Balance 400 500 Intake, Oral 400 500 Laboratory Tests 09/03 09/02 09/02 09/02 0818 0814 0520 0520 Chemistry Sodium (137 - 145 mmol/L) 135 L 136 L Potassium (3.5 - 5.1 mmol/L) 4.1 3.8 Chloride (98 - 107 mmol/L) 91 L 97 L Carbon Dioxide (22 - 30 mmol/L) 30 27 Anion Gap (5 - 16) 14 12 BUN (7 - 17 mg/dL) 8 12 Creatinine (0.5 - 1.0 mg/dL) 0.6 0.5 Estimated GFR (>60 ml/min) > 60 > 60 BUN/Creatinine Ratio (7 - 25 %) 13.3 24.0 Troponin I (< 0.11 ng/ml) 0.02 Hematology CBC w Diff NO MAN DIFF REQ WBC (4.8 - 10.8 /CUMM) 2.9 L RBC (4.20 - 5.40 /CUMM) 3.95 L Hgb (12.0 - 16.0 G/DL) 12.6 Hct (37 - 47 %) 38.7 MCV (81.0 - 99.0 FL) 98.0 MCH (27.0 - 31.0 PG) 32.0 H MCHC (33.0 - 37.0 G/DL) 32.6 L RDW (11.5 - 14.5 %) 13.4 Plt Count (130 - 400 /CUMM) 137 MPV (7.4 - 10.4 FL) 8.8 Gran % (42.2 - 75.2 %) 46.3 Lymphocytes % (20.5 - 51.1 %) 44.8 Monocytes % (1.7 - 9.3 %) 8.1 Eosinophils % (0 - 5 %) 0.4 Basophils % (0.0 - 2.0 %) 0.4 Absolute Granulocytes (1.4 - 6.5 /CUMM) 1.4 Absolute Lymphocytes (1.2 - 3.4 /CUMM) 1.3 Absolute Monocytes (0.10 - 0.60 /CUMM) 0.2 Absolute Eosinophils (0.0 - 0.7 /CUMM) 0 Absolute Basophils (0.0 - 0.2 /CUMM) 0 Miscellaneous Ref Lab Test Result (()) REPORT Toxicology Valproic Acid (50 - 120 ug/mL) 47.7 L 09/02 09/01 09/01 0100 1933 1745 Chemistry Lactic Acid Cancelled Troponin I (< 0.11 ng/ml) < 0.01 Urines Urine Color (YEL,AMB,STR) YEL Urine Clarity (CLEAR) HAZY H Urine pH (5.0 - 8.0) 6.0 Ur Specific [place] (1.001 - 1.035) 1.020 Urine Protein (NEG,<30 MG/DL) 30 H Urine Ketones (NEG) 15 H Urine Nitrite (NEG) NEG Urine Bilirubin (NEG) NEG Urine Urobilinogen (0.1 - 1.0 EU/dl) 0.2 Ur Leukocyte Esterase (NEG) MOD H Ur Microscopic SEDIMENT EXAMINED Urine RBC (0 - 5 /HPF) RARE Urine WBC (0 - 2 /HPF) 5-10 H Ur Epithelial Cells (NONE,FEW) RARE Urine Bacteria (NEG/NONE) FEW H Urine Mucus (FEW,NONE) RARE Urine Hemoglobin (NEG) NEG Urine Glucose (N MG/DL) NEG 09/01 09/01 1527 1527 Chemistry Sodium (137 - 145 mmol/L) 137 Potassium (3.5 - 5.1 mmol/L) 4.0 Chloride (98 - 107 mmol/L) 94 L Carbon Dioxide (22 - 30 mmol/L) 29 Anion Gap (5 - 16) 14 BUN (7 - 17 mg/dL) 14 Creatinine (0.5 - 1.0 mg/dL) 0.7 Estimated GFR (>60 ml/min) > 60 BUN/Creatinine Ratio (7 - 25 %) 20.0 Glucose (65 - 99 mg/dL) 64 L Lactic Acid (0.7 - 2.1 mmol/L) 1.1 Calcium (8.4 - 10.2 mg/dL) 9.0 Total Bilirubin (0.2 - 1.3 mg/dL) 0.2 AST (14 - 36 U/L) 60 H ALT (9 - 52 U/L) 52 Alkaline Phosphatase (<127 U/L) 101 Troponin I (< 0.11 ng/ml) 0.01 [id number] Pept (<125 pg/mL) 506 H Total Protein (6.3 - 8.2 g/dL) 6.4 Albumin (3.5 - 5.0 g/dL) 3.6 Globulin (1.9 - 4.2 gm/dL) 2.8 Albumin/Globulin Ratio (1.1 - 2.2 %) 1.3 Hematology CBC w Diff MAN DIFF ORDERED WBC (4.8 - 10.8 /CUMM) 3.7 L RBC (4.20 - 5.40 /CUMM) 3.96 L Hgb (12.0 - 16.0 G/DL) 13.1 Hct (37 - 47 %) 38.4 MCV (81.0 - 99.0 FL) 97.1 MCH (27.0 - 31.0 PG) 33.1 H MCHC (33.0 - 37.0 G/DL) 34.2 RDW (11.5 - 14.5 %) 13.7 Plt Count (130 - 400 /CUMM) 124 L MPV (7.4 - 10.4 FL) 8.5 Gran % (42.2 - 75.2 %) 60.1 Lymphocytes % (20.5 - 51.1 %) 27.2 Monocytes % (1.7 - 9.3 %) 11.5 H Eosinophils % (0 - 5 %) 0.4 Basophils % (0.0 - 2.0 %) 0.8 Absolute Granulocytes (1.4 - 6.5 /CUMM) 2.2 Absolute Lymphocytes (1.2 - 3.4 /CUMM) 1.0 L Absolute Monocytes (0.10 - 0.60 /CUMM) 0.4 Absolute Eosinophils (0.0 - 0.7 /CUMM) 0 Absolute Basophils (0.0 - 0.2 /CUMM) 0 Microbiology Date/Time Procedure - Status Source Growth 09/02 608 Respiratory Culture - COLB LOWER RESP 09/02 06 Gram Stain - COLB LOWER RESP 09/01 1617 Influenza Virus A & B Rapid Smear - COMP NASOPHARYN 09/01 1540 Blood Culture - RES BLOOD 09/01 1527 Blood Culture - RES BLOOD Impression/Plan Impression/Plan Impression/Plan: SIGNIFICANT DATA Chest x-ray done was unremarkable no pneumonia Previous head CT was suggestive of chronic changes otherwise unremarkable Electrolytes as noted valproic acid level was low all the cultures have been negative so far BUN/creatinine is stable but glucose was low upon admission previous random cortisol level was normal proBNP was 506 white count was 3.7 platelets 124 with no significant left shift. 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 She also does have interstitial lung disease which is complicating the issue * Recent diarrhea rule out C. difficile, if she has persistent diarrhea * History of epilepsy, cardiomyopathy, peripheral vascular disease and epilepsy has been stable * Ongoing smoking RECOMMENDATION Continue [id number]-[id number]-kmoqd nebulizer therapy azithromycin Change steroids to 60 mg daily Continue nicotine patch Sputum culture Discontinue ibuprofen Discontinue IV fluids Stool for C. difficile and culture and full workup if she does have persistent diarrhea Will follow prn over the weekend
--- NOTE | 2017-09-03 15:56 | Patient Discharge Instructions ---
Discharge Instructions General Discharge Information You were seen/treated for: Acute hypoxic respiratory failure due to COPD exacerbation Watch for these problems: Shortness of breath, cough, sputum, chest pain, lightheadedness and chest tightness. If you experience any of these symptoms place, to ED or call your primary care physician. Special Instructions: Follow up with your primary care physician in one week. Follow-up with your manager dental in 1 week. Diet Recommended Diet: Heart Healthy Activity Activity Self Limited: Yes Acute Coronary Syndrome Inclusion Criteria At DC or during hospital stay patient has or had the following: ACS DIAGNOSIS No Discharge Core Measures Meds if any: Prescribed or Continued at Discharge Meds if any: NOT Prescribed or Continued at Discharge Congestive Heart Failure Inclusion Criteria At DC or during hospital stay patient has or had the following: CHF DIAGNOSIS No Discharge Core Measures Meds if any: Prescribed or Continued at Discharge Meds if any: NOT Prescribed or Continued at Discharge Cerebrovascular accident Inclusion Criteria At DC or during hospital stay patient has or had the following: CVA/TIA Diagnosis No Discharge Core Measures Meds if any: Prescribed or Continued at Discharge Meds if any: NOT Prescribed or Continued at Discharge Venous thromboembolism Inclusion Criteria VTE Diagnosis No VTE Type NONE VTE Confirmed by (Test) NONE Discharge Core Measures - Per Current guidelines, there needs to be overlap - treatment for the first 5 days of Warfarin therapy. - If discharged on Warfarin prior to 5 days of - overlap therapy, the patient will need to be - assessed for post discharge needs including - *Post discharge parental anticoagulation - *Warfarin and/or parental anticoagulation education - *Follow up date to check INR post discharge At least 5 days overlap therapy as Inpatient No Meds if any: Prescribed or Continued at Discharge Note: Overlap Therapy is Warfarin and Anticoagulant Meds if any: NOT Prescribed or Continued at Discharge
[2017-09-03] MEDS ORDERED: PREDNISONE10 M2 PO (17:14)
[2017-09-03] MEDS ORDERED: AZITHROMYCIN250 M1 PO (17:16)
[2017-09-03 21:56] VITALS: BP 122/80
[2017-09-04 07:42] VITALS: BP 124/78
--- NOTE | 2017-09-04 10:05 | PN- Housestaff ---
[facility] 1004: Subjective Follow-up For: COPD exacerbation Subjective: The patient is sitting on chair looks relaxed uncomfortable. No acute overnight events were reported. Patient is currently on 3 L of oxygen saturating mid 90s. She still complaining of shortness breath especially with ambulation. The patient lives in the second floor, she stated that she will not be able to go home unless she can go up 1 flight of stairs. She denies any other current active complaints. Review of Systems Constitutional: Reports: no symptoms, see HPI. Objective Last 24 Hrs of Vital Signs/I&O Vital Signs Date Time Temp Pulse Resp B/P B/P Pulse O2 O2 Flow FiO2 Mean Ox Delivery Rate 09/04 1039 96 Nasal 3.0L Cannula 09/04 0859 97.9 71 20 124/78 09/04 0742 97.9 71 20 124/78 95 Nasal 2.0L Cannula 09/04 0607 Nasal 2.0L Cannula 09/04 0000 92 Nasal 3.0L Cannula 09/03 2156 97.5 74 20 122/80 92 09/03 1901 93 Nasal 2.0L Cannula 09/03 1600 92 Nasal 2.0L Cannula Intake & Output 09/04 1600 09/04 0800 09/04 0000 Intake Total 100 600 Output Total 250 Balance 100 350 Intake, IV 0 Intake, Oral 100 600 Number 0 1 Bowel Movements Output, Urine 250 Physical Exam General Appearance: Alert, Oriented X3, Cooperative, No Acute Distress HEENT: Atraumatic, PERRLA, EOMI, Mucous Membr. moist/pink Neck: No JVD Cardiovascular: Normal S1, Normal S2 Lungs: decreased air entry allover lungs bilaterally. Diffuse wheezing Abdomen: Soft, No Tenderness Neurological: Normal Speech Extremities: No Clubbing, No Cyanosis, No Edema Current Medications: Current Medications Sig/Maureen Start time Last Medication Dose Route Stop Time Status Admin Acetaminophen 650 MG Q6P PRN 09/02 0015 AC 09/04 PO 0630 Albuterol Sulfate 3 ML TID 09/02 1000 AC 09/04 INH 1035 Albuterol Sulfate 2 PUF Q6 PRN 09/02 0200 AC INH Aspirin 81 MG DAILY 09/02 1000 AC 09/04 PO 0859 Atorvastatin Calcium 80 MG 1700 09/02 1700 AC 09/03 PO 1643 Azithromycin 250 MG DAILY 09/03 1000 AC 09/04 PO 0858 Budesonide/ 2 PUF BID 09/02 1000 AC 09/04 Formoterol Fumarate INH 0900 Divalproex Sodium 500 MG BID 09/02 0200 AC 09/04 PO 0859 Enoxaparin Sodium 40 MG DAILY 09/02 1000 AC 09/04 SC 0859 Felbamate 300 MG 1200 09/02 1200 AC 09/03 PO 1313 Felbamate 600 MG BID 09/02 0200 AC 09/04 PO 0901 Guaifenesin 600 MG Q12 09/02 1000 AC 09/04 PO 0858 Ipratropium Hiko 2.5 ML TID 09/02 1000 AC 09/04 INH 1035 Methylprednisolone 60 MG DAILY 09/03 1000 AC 09/04 IV 0900 Metoprolol Succinate 50 MG QAM 09/02 1000 AC 09/04 PO 0859 Nicotine 14 MG Q24 09/02 1000 AC 09/04 TOP 0858 Phenobarbital 64.8 MG AT BEDTIME 09/02 2200 AC 09/03 PO 2111 Phenobarbital 32.4 MG QAM 09/02 1000 AC 09/04 PO 0911 Potassium Chloride 40 MEQ ONCE ONE 09/04 1145 AC PO 09/04 1146 Sodium Chloride 2 SPRAY Q4P PRN 09/04 0730 AC 09/04 MORGAN 0912 Last 24 Hrs of Lab/Perfecto Results Last 24 Hrs of Labs/Mics: Laboratory Tests 09/04/17 0755: Anion Gap 12, Estimated GFR > 60, BUN/Creatinine Ratio 12.0 Assessment/Plan Assessment: 67 YO F with a PMH of COPD, cardiomyopathy, viral encephalitis, seizures, right eye blindness, GI polyps, degenerative joint disease, hypodensities, depression, presenting for a chief complaint of flulike symptoms. #COPD exacerbation: * Oxygen requirement increased from 2 L yesterday to 3 L today * We will continue steroids and taper as allowed by the patient's status * We will continue azithromycin today's date 3 * We will continue Mucinex. #Cardiomyopathy, hyperlipidemia, seizures: * Continue metoprolol and aspirin. * Continue Lipitor * Continue her home medications. -DVT prophylaxis with mechanical and Lovenox -Full code Problem List: 1. COPD exacerbation Pain Ratin Pain Location: na Pain Goal: Remain pain free Pain Plan: See assessment and plan Tomorrow's Labs & Rationales: See assessment and plan Genevieve CONRAD,B 09/04/17 1149: Attending MD Review Statement Attending Statement Attending Statement: examined this patient, discuss w/resident/PA/FEATHER CUTTING MACHINE FEEDER, agreed w/resident/PA/FEATHER CUTTING MACHINE FEEDER, discussed with nursing Attending Assessment/Plan: Pt discussed with the covering house staff, seen and examined independently. 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 Her O2 requrement increased to 3 Lts dform 2 lts. reports diarrrhea is improved. On exam Lung sounds are significantly diminished bilaterllay. A/P: COPD exacerbation c/b Hypoxia; pt will benefit from continuing on IV steroids. will consider taper to po prednsione in am if improved lung exam and O2 requirement. c/w azithromycin. follow pulm recs. Wean O2 as tolerated, Ambulatory sats prior to discharge. plan discussed with nursing staff and patient. Attending Statement Attending Statement: examined this patient, discuss w/resident/PA/FEATHER CUTTING MACHINE FEEDER, agreed w/resident/PA/FEATHER CUTTING MACHINE FEEDER, discussed with nursing Attending Assessment/Plan: Pt discussed with the covering house staff, seen and examined independently. 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 Her O2 requrement increased to 3 Lts dform 2 lts. reports diarrrhea is improved. On exam Lung sounds are significantly diminished bilaterllay. A/P: COPD exacerbation c/b Hypoxia; pt will benefit from continuing on IV steroids. will consider taper to po prednsione in am if improved lung exam and O2 requirement. c/w azithromycin. follow pulm recs. Wean O2 as tolerated, Ambulatory sats prior to discharge. plan discussed with nursing staff and patient.
--- NOTE | 2017-09-04 10:19 | Discharge Summary ---
Hospital Course Allergies: Coded Allergies: cefuroxime (From Ceftin) (RASH 09/01/17) levofloxacin (From Levaquin) (RASH 09/01/17) morphine (UNKNOWN 09/01/17) Discharge Instructions Medications at Discharge Discharge Medications: Stop taking the following medications: Felbamate (Felbamate) 600 MG TABLET ORAL DAILY Qty = 90 Diclofenac Sodium (Diclofenac Sodium) 50 MG TABLET.DR ORAL TWICE DAILY Continue taking these medications: Metoprolol Succinate (Metoprolol Succinate) 50 MG TAB.ER.24H 1 Tablet ORAL Every Morning Qty = 90 Comments: DID NOT RECEIVE WHILE IN HOSPITAL Felbamate (Felbamate) 600 MG TABLET 1 Tablet ORAL TWICE DAILY Qty = 90 Comments: Last Taken: 12/17/15 Time: 10:30 AM Phenobarbital (Phenobarbital) 32.4 MG TABLET 1 Tablet ORAL Every Morning Comments: Last Taken: 12/17/15 Time: 10:30 AM Phenobarbital (Phenobarbital) 32.4 MG TABLET 2 Tablet ORAL TAKE AT BEDTIME Qty = 90 Comments: Last Taken: 12/16/15 Time: 11:00 PM Divalproex Sodium (Divalproex Sodium) 500 MG TABLET.DR 1 Tablet ORAL TWICE DAILY Qty = 60 Comments: Last Taken: 12/17/15 Time: 10:30 AM Folic Acid (Folic Acid) 1 MG TABLET 1 Tablet ORAL Every Morning Qty = 90 Comments: Last Taken: 12/17/15 Time: 10:30 AM Atorvastatin Calcium (Atorvastatin Calcium) 80 MG TABLET 1 Tablet ORAL DAILY Qty = 90 Comments: Last Taken: 12/16/15 Time: 5:00 PM Calcium Carbonate/Vitamin D3 (Calcium 500 + D Tablet) 1 EACH TABLET 1 Tablet ORAL TWICE DAILY Comments: DID NOT RECEIVE WHILE IN HOSPITAL Cyanocobalamin (Vitamin B-12) 1,000 MCG TABLET 1 Tablet ORAL Every Morning Comments: Last Taken: 12/17/15 Time: 10:30 AM Clobetasol Propionate (Clobetasol Propionate) 15 GM OINT...G. 1 Application On the skin DAILY as needed for SKIN Qty = 60 Instructions: apply to affected area(s) Comments: DID NOT RECEIVE WHILE IN HOSPITAL Ipratropium/Albuterol Sulfate (Iprat-Albut 0.5-3(2.5) MG/3 Ml) 3 ML AMPUL.NEB 3 Milliliters Inhale through mouth TWICE DAILY as needed for SOB/WHEEZE Comments: Last Taken: 12/17/15 Time: 11:45 AM Albuterol Sulfate (Proair Hfa) 8.5 GM HFA.AER.AD 2 Puff Inhale through mouth as needed for WHEEZE Comments: DID NOT RECEIVE WHILE IN HOSPITAL Cyclosporine (Restasis) 1 EACH DROPERETTE 1 Drop In the eye Q12H Comments: DID NOT RECEIVE WHILE IN HOSPITAL Budesonide/Formoterol Fumarate (Symbicort 160-4.5 Mcg Inhaler) 10.2 GM HFA.AER.AD 2 Puff Inhale through mouth TWICE DAILY Qty = 1 Comments: Last Taken: 12/17/15 Time: 2:30 PM Dicyclomine Hydrochloride (Bentyl) 10 MG CAPSULE 20 Milligram ORAL THREE TIMES DAILY as needed for CRAMPS [ECASA] 81 MG TAB 81 Milligram ORAL Every Morning Instructions: *ENTERIC CODED ASPIRIN Bioflav,Lemon/Vit Bcomp,C (Lipo-Flavonoid Plus Caplet) 200 MG-100 MG TABLET 1 Tablet ORAL Every Morning-Night Start taking the following new medications: Prednisone (Prednisone) 10 MG TABLET 0 ORAL DAILY Qty = 63 No Refills Instructions: On Take 09/04-09/06 60 MG 09/07-09/09 50 MG 09/10-09/12 40 MG 09/13-09/15 30 MG 09/16-09/18 20 MG 09/19-09/21 10 MG then stop Qty = 3 No Refills
[2017-09-04 14:24] VITALS: BP 122/82
[2017-09-04 22:33] VITALS: BP 104/52
[2017-09-05 07:05] VITALS: BP 120/64
--- NOTE | 2017-09-05 07:33 | PN- Housestaff ---
[facility] Subjective Follow-up For: Acute hypoxic respiratory failure due to COPD exacerbation Subjective: No overnight events. Patient remained afebrile overnight. Seen and examined this morning. She is using 3 L of oxygen maintaining saturations 96%. patient desats to 80s this morning. Patient denied any chest pain, nausea, vomiting, chills, fever, abdominal pain dysuria. She reported shortness of breath and cough with sputum. Review of Systems Constitutional: Reports: no symptoms. EENTM: Reports: no symptoms. Cardiovascular: Reports: no symptoms. Respiratory: Reports: cough, short of breath, sputum production. Gastrointestinal: Reports: no symptoms. Genitourinary: Reports: no symptoms. Musculoskeletal: Reports: no symptoms. Neurological/Psychological: Reports: no symptoms. Objective Last 24 Hrs of Vital Signs/I&O Vital Signs Date Time Temp Pulse Resp B/P B/P Pulse O2 O2 Flow FiO2 Mean Ox Delivery Rate 09/05 0812 96 Nasal 2.0L Cannula 09/05 0705 98.1 71 20 120/64 93 Nasal 3.0L Cannula 09/04 2233 98.1 72 20 104/52 94 Nasal Cannula 09/04 1939 94 Nasal 2.0L Cannula 09/04 1600 Nasal 2.0L Cannula 09/04 1424 98.1 81 18 122/82 91 Room Air 09/04 1039 96 Nasal 3.0L Cannula 09/04 0859 97.9 71 20 124/78 Intake & Output 09/05 1600 09/05 0800 02 0000 Intake Total 0 160 Output Total 2 Balance -2 160 Intake, IV 0 20 Intake, Oral 0 140 Number 2 Bowel Movements Output, Urine 2 Physical Exam General Appearance: Alert, Oriented X3, Cooperative Skin Temp/Moisture Exam: Warm/Dry Sepsis Skin Exam (color): Normal for Ethnicity HEENT: Atraumatic, PERRLA, EOMI Neck: Supple Cardiovascular: Normal S1, Normal S2 Lungs: Bronchospasm b/l. Decreased breath sounds b/l Abdomen: Soft, No Tenderness Neurological: Normal Speech, Strength at 5/5 X4 Ext, Normal Tone, Sensation Intact Extremities: No Edema Assessment/Plan Assessment: 67 YO F with a PMH of COPD, cardiomyopathy, viral encephalitis, seizures, right eye blindness, GI polyps, degenerative joint disease, hypodensities, depression, presenting for a chief complaint of flulike symptoms. We'll admit the patient on general medicine floor to treat for acute hypoxic respiratory failure due to COPD exacerbation. Acute hypoxic respiratory failure due to COPD exacerbation: -Initially patient was on 5 L of oxygen and maintaining saturation, now he is on 3 L of oxygen and we will try to wean it off. -TRC nebulization as needed -Po azithromycin for 5 days. Day 4 -IV Solu-Medrol every 60mg daily. -We will give him Mucinex. History of cardiomyopathy: -We will continue metoprolol and aspirin. History of hyperlipidemia: -We will continue Lipitor History of seizures: -We'll continue her home medications. DVT prophylaxis: Mechanical and Lovenox CODE STATUS: Full code Problem List: 1. COPD exacerbation Pain Ratin Pain Location: none Pain Goal: Remain pain free Pain Plan: pain pathway Tomorrow's Labs & Rationales: vinnie Vallejo MD,B 09/05/17 1029: Attending MD Review Statement Attending Statement Attending MD Statement: examined this patient, discuss w/resident/PA/OPEN HEARTH FURNACE OPERATOR, agreed w/resident/PA/OPEN HEARTH FURNACE OPERATOR, discussed with nursing Attending Assessment/Plan: 67 y/o female with hypoxic resp failure, COPD exacerbation on IV steoids and supplemental O2. This morning pt had an episode of worsening SOB which improved after treatment. yesterday pt desatted to 87% with ambulatlory sats. On exam Lung sounds are still significantly diminished bilaterllay and pt is not moving air at all. A/P: COPD exacerbation c/b Hypoxia; increase solumedrol dose to q12h. c/w azithromycin. follow pulm recs. Wean O2 as tolerated, Ambulatory sats prior to discharge. follow up with pulm upon discharge. Hypokalemia - improved
[2017-09-05 14:30] VITALS: BP 120/72
[2017-09-05 22:32] VITALS: BP 126/70
[2017-09-06 07:10] VITALS: BP 132/68
--- NOTE | 2017-09-06 07:28 | PN- Housestaff ---
[facility] 0727: Subjective Follow-up For: Acute hypoxic respiratory failure due to COPD exacerbation Subjective: No overnight events. Patient remained afebrile overnight. Seen and examined this morning. She denied any chest pain, nausea, vomiting, chills, fever, abdominal pain dysuria. Patient reported having intermittent cough without any phlegm and shortness of breath on exertion. Patient is using 3 L O2 and maintaining saturation 92%. Patient desaturated yesterday and was complaining of shortness of breath that's why she was not discharged. Her IV steroids were increased yesterday. Patient's gait is still unsteady might be she needs PT evaluated again. Review of Systems Constitutional: Reports: no symptoms. EENTM: Reports: no symptoms. Cardiovascular: Reports: no symptoms. Respiratory: Reports: cough, short of breath. Gastrointestinal: Reports: no symptoms. Genitourinary: Reports: no symptoms. Musculoskeletal: Reports: no symptoms. Neurological/Psychological: Reports: no symptoms. Objective Last 24 Hrs of Vital Signs/I&O Vital Signs Date Time Temp Pulse Resp B/P B/P Pulse O2 O2 Flow FiO2 Mean Ox Delivery Rate 09/06 0900 93 Nasal 2.0L Cannula 09/06 0811 97.7 76 20 132/68 09/06 0710 97.7 76 20 132/68 92 02/ 0000 94 Nasal 2.0L Cannula 09/05 2232 97.8 70 20 126/70 94 Nasal 2.0L Cannula 09/05 2100 95 Nasal 2.0L Cannula 09/05 1600 94 Nasal 2.0L Cannula 09/05 1430 98.2 62 20 120/72 96 Intake & Output 09/06 1600 09/06 0800 02 0000 Intake Total 260 260 Output Total Balance 260 260 Intake, IV 20 20 Intake, Oral 240 240 Physical Exam General Appearance: Alert, Oriented X3, Cooperative Skin Temp/Moisture Exam: Warm/Dry Sepsis Skin Exam (color): Normal for Ethnicity HEENT: Atraumatic, PERRLA, EOMI Neck: Supple Cardiovascular: Normal S1, Normal S2 Lungs: B/L decreased breath sounds Abdomen: Soft, No Tenderness Neurological: Normal Speech, Normal Tone Extremities: No Edema Assessment/Plan Assessment: 67 YO F with a PMH of COPD, cardiomyopathy, viral encephalitis, seizures, right eye blindness, GI polyps, degenerative joint disease, hypodensities, depression, presenting for a chief complaint of flulike symptoms. We'll admit the patient on general medicine floor to treat for acute hypoxic respiratory failure due to COPD exacerbation. Acute hypoxic respiratory failure due to COPD exacerbation: -Initially patient was on 5 L of oxygen and maintaining saturation, now he is on 3 L of oxygen and we will try to wean it off. -TRC nebulization as needed -Po azithromycin for 5 days. Day 5 -Prednisone 50mg daily and with tapering dose. -We will give him Mucinex. -Incentive spirometry History of cardiomyopathy: -We will continue metoprolol and aspirin. History of hyperlipidemia: -We will continue Lipitor History of seizures: -We'll continue her home medications. DVT prophylaxis: Mechanical and Lovenox CODE STATUS: Full code Problem List: 1. 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 Hypoxic in ER requiring 5L NC to maintain >92% saturation, with mild wheezing on exam. CXR and rapid flu negative. Still dyspneic with minimal exertion, requiring 2L NC. She feels very weak. 1. COPD Exacerbation 2. Acute hypoxemic respiratory failure 3. Acute bronchitis Plan - Continue on general medicine - Taper Solumedrol - Pulmonary consult - PT eval - Nebulizer treatments - Titrate down oxygen as tolerated - Continue home medications - Sputum culture - DVT PPx
--- NOTE | 2017-09-06 10:54 | Discharge Summary ---
Visit Information Visit Dates Admission Date: 09/01/17 Discharge Date: 09/07/17 Hospital Course Course Attending Physician: Daija Garrison MD Primary Care Physician: Juan M Dumont MD Hospital Course: 67 YO F with a PMH of COPD, cardiomyopathy, viral encephalitis, seizures, right eye blindness, GI polyps, degenerative joint disease, hypodensities, depression, presenting for a chief complaint of flulike symptoms, fever, chills, mild delirious. The patient was diagnosed with COPD exacerbation for which she was admitted. Patient received nebulizer's around the clock, azithromycin, steroids, Mucinex, and oxygen therapy as needed. Initially she improved then wheezing got worse for which she required higher does of steroid. All her home medication including metoprolol, aspirin, Lipitor was continued during this admission. Physical therapy recommended short-term rehabilitation, especially given that she lives in the second floor and she couldn't go up flights of stairs during physical therapy assessment. Allergies: Coded Allergies: cefuroxime (From Ceftin) (RASH 09/01/17) levofloxacin (From Levaquin) (RASH 09/01/17) morphine (UNKNOWN 09/01/17) Disposition Summary Disposition Principal Diagnosis: COPD exacerbation Additional Diagnosis: Hyperlipidemia Cardiomyopathy Discharge Disposition: SNF Discharge Instructions General Discharge Information Code Status: Full Code Patient's Diet: Heart healthy Patient's Activity: As tolerated Follow-Up Instructions/Appts: Please follow-up with primary care doctor within 1 week Please follow-up with pulmonology within 1-2 Medications at Discharge Discharge Medications: Stop taking the following medications: Felbamate (Felbamate) 600 MG TABLET ORAL DAILY Qty = 90 Diclofenac Sodium (Diclofenac Sodium) 50 MG TABLET.DR ORAL TWICE DAILY Continue taking these medications: Metoprolol Succinate (Metoprolol Succinate) 50 MG TAB.ER.24H 1 Tablet ORAL Every Morning Qty = 90 Comments: DID NOT RECEIVE WHILE IN HOSPITAL Felbamate (Felbamate) 600 MG TABLET 1 Tablet ORAL TWICE DAILY Qty = 90 Comments: Last Taken: 12/17/15 Time: 10:30 AM Phenobarbital (Phenobarbital) 32.4 MG TABLET 1 Tablet ORAL Every Morning Comments: Last Taken: 12/17/15 Time: 10:30 AM Phenobarbital (Phenobarbital) 32.4 MG TABLET 2 Tablet ORAL TAKE AT BEDTIME Qty = 90 Comments: Last Taken: 12/16/15 Time: 11:00 PM Divalproex Sodium (Divalproex Sodium) 500 MG TABLET.DR 1 Tablet ORAL TWICE DAILY Qty = 60 Comments: Last Taken: 12/17/15 Time: 10:30 AM Folic Acid (Folic Acid) 1 MG TABLET 1 Tablet ORAL Every Morning Qty = 90 Comments: Last Taken: 12/17/15 Time: 10:30 AM Atorvastatin Calcium (Atorvastatin Calcium) 80 MG TABLET 1 Tablet ORAL DAILY Qty = 90 Comments: Last Taken: 12/16/15 Time: 5:00 PM Calcium Carbonate/Vitamin D3 (Calcium 500 + D Tablet) 1 EACH TABLET 1 Tablet ORAL TWICE DAILY Comments: DID NOT RECEIVE WHILE IN HOSPITAL Cyanocobalamin (Vitamin B-12) 1,000 MCG TABLET 1 Tablet ORAL Every Morning Comments: Last Taken: 12/17/15 Time: 10:30 AM Clobetasol Propionate (Clobetasol Propionate) 15 GM OINT...G. 1 Application On the skin DAILY as needed for SKIN Qty = 60 Instructions: apply to affected area(s) Comments: DID NOT RECEIVE WHILE IN HOSPITAL Ipratropium/Albuterol Sulfate (Iprat-Albut 0.5-3(2.5) MG/3 Ml) 3 ML AMPUL.NEB 3 Milliliters Inhale through mouth TWICE DAILY as needed for SOB/WHEEZE Comments: Last Taken: 12/17/15 Time: 11:45 AM Albuterol Sulfate (Proair Hfa) 8.5 GM HFA.AER.AD 2 Puff Inhale through mouth as needed for WHEEZE Comments: DID NOT RECEIVE WHILE IN HOSPITAL Cyclosporine (Restasis) 1 EACH DROPERETTE 1 Drop In the eye Q12H Comments: DID NOT RECEIVE WHILE IN HOSPITAL Budesonide/Formoterol Fumarate (Symbicort 160-4.5 Mcg Inhaler) 10.2 GM HFA.AER.AD 2 Puff Inhale through mouth TWICE DAILY Qty = 1 Comments: Last Taken: 12/17/15 Time: 2:30 PM Dicyclomine Hydrochloride (Bentyl) 10 MG CAPSULE 20 Milligram ORAL THREE TIMES DAILY as needed for CRAMPS [ECASA] 81 MG TAB 81 Milligram ORAL Every Morning Instructions: *ENTERIC CODED ASPIRIN Bioflav,Lemon/Vit Bcomp,C (Lipo-Flavonoid Plus Caplet) 200 MG-100 MG TABLET 1 Tablet ORAL Every Morning-Night Start taking the following new medications: Prednisone (Prednisone) 10 MG TABLET 0 ORAL DAILY Qty = 63 No Refills Instructions: On Take 09/08-09/09 50 MG 09/10-09/12 40 MG 09/13-09/14 30 MG 09/15-09/16 20 MG 09/17-09/18 10 MG then stop Copies To: Julia CONRAD,Juan M Ledezma; Juan CONRAD,Travis Morin
--- NOTE | 2017-09-06 13:35 | PN- Pulmonary ---
Subjective HPI/Critical Care Issues: Sleeping to str Objective Current Medications: Current Medications Sig/Maureen Start time Last Medication Dose Route Stop Time Status Admin Acetaminophen 650 MG .STK-MED ONE 09/06 0332 DC PO 09/06 0333 Acetaminophen 650 MG Q6P PRN 09/02 0015 AC 09/06 PO 0334 Albuterol Sulfate 3 ML BID 09/05 2200 AC 09/06 INH 0900 Albuterol Sulfate 3 ML TID 02 1000 DC 09/05 INH 1432 Albuterol Sulfate 2 PUF Q6 PRN 09/02 0200 AC 09/06 INH 0805 Aspirin 81 MG DAILY 09/02 1000 AC 09/06 PO 0806 Atorvastatin Calcium 80 MG 1700 09/02 1700 AC 09/05 PO 1619 Azithromycin 250 MG DAILY 09/03 1000 AC 09/06 PO 0811 Bisacodyl 5 MG DAILY 09/05 1812 AC 09/06 PO 0807 Bisacodyl 10 MG ONCE ONE 09/05 1800 DC FL 09/05 1801 Budesonide/ 2 PUF BID 09/02 1000 AC 09/06 Formoterol Fumarate INH 0809 Divalproex Sodium 500 MG BID 09/02 0200 AC 09/06 PO 0806 Docusate Sodium 100 MG DAILY NEEDED PRN 09/05 2200 AC 09/05 PO 2217 Enoxaparin Sodium 40 MG DAILY 09/02 1000 AC 09/06 SC 0808 Felbamate 300 MG 1200 / 1200 AC 09/06 PO 1215 Felbamate 600 MG BID 09/02 0200 AC 09/06 PO 0807 Guaifenesin 600 MG Q12 09/02 1000 AC 09/06 PO 0809 Ipratropium [place] 2.5 ML BID 09/05 2200 CAN INH Ipratropium [place] 2.5 ML TID 09/02 1000 DC 04 INH 1432 Magnesium Oxide 400 MG ONE ONE 09/06 1315 DC PO 09/06 1316 Methylprednisolone 60 MG Q8 09/05 1400 AC 09/06 IV 0536 Metoprolol Succinate 50 MG QAM 09/02 1000 AC 09/06 PO 0811 Nicotine 14 MG Q24 09/02 1000 AC 09/06 TOP 0809 Phenobarbital 64.8 MG AT BEDTIME 09/02 2200 AC 09/05 PO 2134 Phenobarbital 32.4 MG QAM 09/02 1000 AC 09/06 PO 0816 Polyethylene Glycol 17 GM DAILY 09/05 1812 AC 09/06 PO 0808 Potassium Chloride 40 MEQ ONCE ONE 09/05 1430 DC 09/05 PO 09/05 1431 1533 Senna/Docusate Sodium 1 TAB BID PRN 09/05 2200 AC PO Sodium Chloride 2 SPRAY Q4P PRN 09/04 0730 AC 09/06 MORGAN 0333 Vital Signs & I&O Last 24 Hrs of Vitals and I&O: Vital Signs Date Time Temp Pulse Resp B/P B/P Pulse O2 O2 Flow FiO2 Mean Ox Delivery Rate 09/06 899 93 Nasal 2.0L Cannula 09/06 0811 97.7 76 20 132/68 09/06 0800 93 Nasal 2.0L Cannula 09/06 0710 97.7 76 20 132/68 92 09/06 0000 94 Nasal 2.0L Cannula 09/05 2232 97.8 70 20 126/70 94 Nasal 2.0L Cannula 09/05 2100 95 Nasal 2.0L Cannula 09/05 1600 94 Nasal 2.0L Cannula 09/05 1430 98.2 62 20 120/72 96 Intake & Output 09/06 1600 09/06 0800 02 0000 Intake Total 260 260 Output Total Balance 260 260 Intake, IV 20 20 Intake, Oral 240 240 Patient 106 lb Weight Impression/Plan Impression/Plan Impression/Plan: SIGNIFICANT DATA Chest x-ray done was unremarkable no pneumonia Previous head CT was suggestive of chronic changes otherwise unremarkable Electrolytes as noted valproic acid level was low all the cultures have been negative so far BUN/creatinine is stable but glucose was low upon admission previous random cortisol level was normal proBNP was 506 white count was 3.7 platelets 124 with no significant left shift. 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 She also does have interstitial lung disease which is complicating the issue * Recent diarrhea rule out C. difficile, if she has persistent diarrhea * History of epilepsy, cardiomyopathy, peripheral vascular disease and epilepsy has been stable * Ongoing smoking RECOMMENDATION Continue [id number] nebulizer therapy Azithromycin DC iv steroids and use po prednisone 50 and taper in 12 days Continue nicotine and taper OK to str
[2017-09-06 14:38] VITALS: BP 136/66
[2017-09-06] MEDS ORDERED: PREDNISONE10 M2 PO (14:49)
[2017-09-06 22:28] VITALS: BP 112/60
[2017-09-07 06:08] VITALS: BP 94/60
--- NOTE | 2017-09-07 07:33 | PN- Housestaff ---
[facility]: Subjective Follow-up For: Acute hypoxic respiratory failure due to COPD exacerbation Subjective: No overnight events. Patient remained afebrile overnight. Seen and examined this morning. She slept well last night. Patient denied any chest pain, short of breath, nausea, vomiting, abdominal pain and dysuria. She is on 3 L of oxygen maintaining saturation 92%. Patient completed 5 days course of azithromycin. She is on prednisone taper. We will walk around and check her ambulatory sat with and without oxygen. Possible discharge today to [facility]. Review of Systems Constitutional: Reports: no symptoms. EENTM: Reports: no symptoms. Cardiovascular: Reports: no symptoms. Respiratory: Reports: cough. Gastrointestinal: Reports: no symptoms. Genitourinary: Reports: no symptoms. Neurological/Psychological: Reports: no symptoms. Objective Last 24 Hrs of Vital Signs/I&O Vital Signs Date Time Temp Pulse Resp B/P B/P Pulse O2 O2 Flow FiO2 Mean Ox Delivery Rate 09/07 0608 97.2 73 20 94/60 92 Nasal 2.0L Cannula 09/07 0222 92 Nasal 2.0L Cannula 09/06 2228 98.5 76 20 112/60 95 Nasal Cannula 09/06 1935 94 Nasal 2.0L Cannula 09/06 1600 Nasal 2.0L Cannula 09/06 1511 Nasal 2.0L Cannula 09/06 1438 98.4 78 20 136/66 94 /05 0900 93 Nasal 2.0L Cannula Intake & Output 09/07 1600 / 0800 02/ 0000 Intake Total 800 Output Total Balance 800 Intake, Oral 800 Number 4 Bowel Movements Physical Exam General Appearance: Alert, Oriented X3, Cooperative Skin Temp/Moisture Exam: Warm/Dry Sepsis Skin Exam (color): Normal for Ethnicity HEENT: Atraumatic, PERRLA, EOMI Neck: Supple Cardiovascular: Normal S1, Normal S2 Lungs: Clear to Auscultation, DECREASED BREATH SOUNDS B/L Abdomen: Soft, No Tenderness Neurological: Normal Speech, Normal Tone Extremities: No Edema Assessment/Plan Assessment: 67 YO F with a PMH of COPD, cardiomyopathy, viral encephalitis, seizures, right eye blindness, GI polyps, degenerative joint disease, hypodensities, depression, presenting for a chief complaint of flulike symptoms. Patient is being followed on general medicine floor to treat for acute hypoxic respiratory failure due to COPD exacerbation. Acute hypoxic respiratory failure due to COPD exacerbation: -Initially patient was on 5 L of oxygen and maintaining saturation, now he is on 3 L of oxygen and we will try to wean it off. -TRC nebulization as needed -Completed 5 days po azithromycin. -Prednisone 50mg daily and with tapering dose. -Continue Mucinex. -Incentive spirometry History of cardiomyopathy: -We will continue metoprolol and aspirin. History of hyperlipidemia: -We will continue Lipitor History of seizures: -We'll continue her home medications. DVT prophylaxis: Mechanical and Lovenox CODE STATUS: Full code Problem List: 1. COPD exacerbation Pain Ratin Pain Location: NONE Pain Goal: Remain pain free Pain Plan: PAIN PATHWAY Tomorrow's Labs & Rationales: NONE Daija Garrison MD 09/07/17 1208: Attending MD Review Statement Attending Statement Attending MD Statement: examined this patient, discuss w/resident/PA/GEOGRAPHIC INFORMATION SYSTEMS ENGINEER, agreed w/resident/PA/GEOGRAPHIC INFORMATION SYSTEMS ENGINEER, reviewed EMR data (avail) Attending Assessment/Plan: 67F PMH cardiomyopathy, depression, bipolar disorder, history of viral encephalitis with temporary ventricular shunt and residual seizure disorder, COPD, S/P right CEA, history of GI bleed, current smoker admitted with initial URI symptoms followed by diarrhea, progressing to fever, chills, fatigue, productive cough with yellow sputum. Hypoxic in ER requiring 5L NC to maintain >92% saturation, with mild wheezing on exam. CXR and rapid flu negative. Feels better today. Dyspnea is improving. She is still weak and has difficulty ambulating. 1. COPD Exacerbation 2. Acute hypoxemic respiratory failure 3. Acute bronchitis Plan - Continue on general medicine - Prednisone taper - Pulmonary consult - Nebulizer treatments - Titrate down oxygen as tolerated - Continue home medications - Sputum culture - DVT PPx - Can be discharged to [facility] when bed is available with outpatient pulmonary follow up
--- NOTE | 2017-09-07 10:31 | PN- Pulmonary ---
Subjective HPI/Critical Care Issues: Improving Objective Current Medications: Current Medications Sig/Maureen Start time Last Medication Dose Route Stop Time Status Admin Acetaminophen 650 MG Q6P PRN 09/02 0015 AC 09/06 PO 0334 Albuterol Sulfate 3 ML BID 09/05 2200 AC 09/07 INH 0221 Albuterol Sulfate 2 PUF Q6 PRN 09/02 0200 AC 09/06 INH 1835 Aspirin 81 MG DAILY 09/02 1000 AC 09/07 PO 0948 Atorvastatin Calcium 80 MG 1700 09/02 1700 AC 09/06 PO 1617 Azithromycin 250 MG DAILY 09/03 1000 DC 09/06 PO 0811 Bisacodyl 5 MG DAILY 09/05 1812 AC 09/06 PO 0807 Budesonide/ 2 PUF BID 09/02 1000 AC 09/07 Formoterol Fumarate INH 0952 Divalproex Sodium 500 MG BID 09/02 0200 AC 09/07 PO 0948 Docusate Sodium 100 MG DAILY NEEDED PRN 09/05 2200 AC 09/05 PO 2217 Enoxaparin Sodium 40 MG DAILY 09/02 1000 AC 09/07 SC 0950 Felbamate 300 MG 1200 09/02 1200 AC 09/06 PO 1215 Felbamate 600 MG BID 09/02 0200 AC 09/07 PO 0950 Guaifenesin 600 MG Q12 09/02 1000 AC 09/07 PO 0951 Magnesium Oxide 400 MG ONE ONE 09/07 1030 AC PO 09/07 1031 Magnesium Oxide 400 MG ONE ONE 09/06 1315 DC 02 PO 09/06 1316 1428 Methylprednisolone 60 MG Q8 09/05 1400 DC 09/06 IV 1426 Metoprolol Succinate 50 MG QAM 09/02 1000 AC 09/07 PO 0952 Nicotine 14 MG Q24 09/02 1000 AC 09/07 TOP 0951 Phenobarbital 64.8 MG AT BEDTIME 09/02 2200 AC 09/06 PO 2101 Phenobarbital 32.4 MG QAM 09/02 1000 AC 09/07 PO 0955 Polyethylene Glycol 17 GM DAILY 09/05 1812 AC 09/06 PO 0808 Prednisone 10 MG DAILY 09/17 1000 AC PO 09/18 1001 Prednisone 20 MG DAILY 09/15 1000 AC PO 09/16 1001 Prednisone 30 MG DAILY 09/13 1000 AC PO 09/14 1001 Prednisone 40 MG DAILY 09/10 1000 AC PO 09/12 1001 Prednisone 50 MG DAILY 09/07 1000 CAN PO 09/19 0959 Prednisone 50 MG DAILY 09/07 1000 AC 09/07 PO 09/09 1001 0951 Senna/Docusate Sodium 1 TAB BID PRN 09/050 AC PO Sodium Chloride 2 SPRAY Q4P PRN 09/04 0730 AC 09/06 MORGAN 2110 Vital Signs & I&O Last 24 Hrs of Vitals and I&O: Vital Signs Date Time Temp Pulse Resp B/P B/P Pulse O2 O2 Flow FiO2 Mean Ox Delivery Rate 09/07 0952 97.2 73 20 94/60 09/07 0608 97.2 73 20 94/60 92 Nasal 2.0L Cannula 09/07 0222 92 Nasal 2.0L Cannula 09/07 0000 95 Nasal 2.0L Cannula 09/06 2228 98.5 76 20 112/60 95 Nasal Cannula 09/06 1935 94 Nasal 2.0L Cannula 09/06 1600 Nasal 2.0L Cannula 09/06 1511 Nasal 2.0L Cannula 09/06 1438 98.4 78 20 136/66 94 Intake & Output 09/07 1600 09/07 0800 09/07 0000 Intake Total 0 800 Output Total Balance 0 800 Intake, IV 0 Intake, Oral 0 800 Number 3 4 Bowel Movements Impression/Plan Impression/Plan Impression/Plan: SIGNIFICANT DATA Chest x-ray done was unremarkable no pneumonia Previous head CT was suggestive of chronic changes otherwise unremarkable Electrolytes as noted valproic acid level was low all the cultures have been negative so far BUN/creatinine is stable but glucose was low upon admission previous random cortisol level was normal proBNP was 506 white count was 3.7 platelets 124 with no significant left shift. 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 She also does have interstitial lung disease which is complicating the issue * History of epilepsy, cardiomyopathy, peripheral vascular disease and epilepsy has been stable * Ongoing smoking RECOMMENDATION Continue [id number] nebulizer therapy dc abx Prednisone 50 and taper in 12 days Continue nicotine and taper OK to str
[2017-09-07] MEDS ORDERED: PREDNISONE10 M2 PO (13:29)
[2017-09-07 13:56] VITALS: BP 120/62
[2017-09-07 16:43] VITALS: BP 120/62
== END 2017-09-07 17:40 | DRG 190 ==
LOC: ERH 14:11 → 2NA 19:36 → ERHI 19:36 → ENRESERV 21:19 → ENTRNSPT 22:39 → 2NA 23:00 → CMPTRNSPT 23:24 → 2NA 09-02 09:42 → ENPENDDIS 09-07 13:45 → 2NA 09-07 17:40
PROVIDERS: Physician Assistant Medical; Student in an Organized Health Care Education/Training Program
DX: J44.1 Chronic obstructive pulmonary disease with (acute) exacerbation (principal); J96.01 Acute respiratory failure with hypoxia; J84.9 Interstitial pulmonary disease, unspecified; I42.9 Cardiomyopathy, unspecified; L90.0 Lichen sclerosus et atrophicus; M19.90 Unspecified osteoarthritis, unspecified site; H54.40 Blindness, one eye, unspecified eye; F32.9 Major depressive disorder, single episode, unspecified; G40.909 Epilepsy, unspecified, not intractable, without status epilepticus; Z88.1 Allergy status to other antibiotic agents; Z88.5 Allergy status to narcotic agent; Z79.51 Long term (current) use of inhaled steroids; F17.200 Nicotine dependence, unspecified, uncomplicated; E78.5 Hyperlipidemia, unspecified; K57.90 Diverticulosis of intestine, part unspecified, without perforation or abscess without bleeding; I73.9 Peripheral vascular disease, unspecified; R19.7 Diarrhea, unspecified; J20.9 Acute bronchitis, unspecified; Z96.89 Presence of other specified functional implants; E87.6 Hypokalemia
CPT/HCPCS: 2NASP; 80184; 36415; 71045; 81001; 82436; 87040; 87070; 87804; 87804-59; 93005; 93010; 97110-GO; 97116-GO; 97161-GP; J0456; J1650; J2920; J2930; J3490; J7060; J7512